=== PATIENT | male | born 1940 | race Caucasian/White ===

== ENCOUNTER 2016-01-14 14:30 | Outpatient (RCR) | payer MEDICARE, OTHER ==
[~2016-01-14 14:30] MED LIST: ACHD5005 PO; AMLO10TA2 PO; AMLO5TAB2 PO; APIX5TAB PO; ASCO500T20 PO; ASP325T; ATOR10TA66 PO; BUDE10.2 IH; CALC-656 PO; CARV12.53 PO; CARV40CP PO; CARV6.252 PO; CETI10CA PO; CETI10TA17 PO; CHOL400C8 PO; CYAN250L PO; DILT120C63 PO; DIPH50CA40 PO; FISH1CAP15 PO; FLUT16SP22 NS; FLUT1DIS27 IH; FNST5T; FRSM20T PO; GEMF600T3 PO; GINK60CA13 PO; GLUC-172 PO; GLUCO/CHON PO; GMFB600T PO; HYDR118S PO; HYDR30CR69 RC; IBUP-2055 PO; IBUP1TAB14 PO; IBUP1TAB15 PO; KCL10CCR PO; LIDO PO; LISI10TA2 PO; LISI20TA PO; LISI40TA PO; MAGN400C PO; MELO7.5T; MNTL10T PO; MONT10TA24 PO; MULT-974 PO; NF-LISIN40; NICO-627 BC; OMEG-109 PO; OMEG1CAP24 PO; OMEP20CA12 PO; OMEP40CA36 PO; OMG1KC PO; POTA-51 PO; POTA10CA43 PO; POTA10TA6 PO; RULOX PO; SELE100T PO; TIOT18CA PO; TRIA15CR TP; UBID100C17 PO; [UNRECOGNIZED DRUG - CODE] PO; [UNRECOGNIZED DRUG - OTHER] PO; [UNRECOGNIZED DRUG - OTHER] PO
== END 2016-02-23 | disposition home or self-care (01) ==
LOC: PULM 14:30
PROVIDERS: ATTEND Internal Medicine Critical Care Medicine
DX: J44.9 Chronic obstructive pulmonary disease, unspecified (principal)
CPT/HCPCS: 99211

== ENCOUNTER → 2016-02-13 | Outpatient (RCR) | payer MEDICARE, OTHER ==
[2015-11-14 10:49] LABS: BILIRUBIN,URINE NEGATIVE (NEGATIVE); KETONES,URINE NEGATIVE (NEGATIVE); LEUKOCYTE ESTERASE ,URINE 2+ (NEGATIVE); NITRITE,URINE NEGATIVE (NEGATIVE); PH,URINE 6 (5-9); PROTEIN,URINE 1+ (NEGATIVE); UROBILINOGEN,URINE NORMAL (NORMAL)
[2015-11-26 15:14] LABS: BILIRUBIN,URINE NEGATIVE (NEGATIVE); KETONES,URINE NEGATIVE (NEGATIVE); LEUKOCYTE ESTERASE ,URINE 2+ (NEGATIVE); NITRITE,URINE NEGATIVE (NEGATIVE); PH,URINE 5 (5-9); PROTEIN,URINE 1+ (NEGATIVE); UROBILINOGEN,URINE NORMAL (NORMAL)
[2016-02-12 15:35] LABS: BASOPHILS # (AUTO) 0.1 10^3/uL (0.0-0.1); BASOPHILS % (AUTO) 1 % (0-10); EOSINOPHILS # (AUTO) 0.2 10^3/uL (0.0-0.3); EOSINOPHILS % (AUTO) 2 % (0-10); LYMPHOCYTES % (AUTO) 24 % (12-44); MEAN CORPUSCULAR HEMOGLOBIN 27 PG (25-34); MEAN CORPUSCULAR HGB CONC 33 G/DL (32-36); MEAN CORPUSCULAR VOLUME 83 FL (80-99); MEAN PLATELET VOLUME 12.2 FL (7.4-10.4); MONOCYTES # (AUTO) 0.6 X 10^3 (0.0-1.0); MONOCYTES % (AUTO) 8 % (0-12); NEUTROPHILS # (AUTO) 5.4 X 10^3 (1.8-7.8); NEUTROPHILS % (AUTO) 65 % (42-75); PLATELET COUNT 217 10^3/uL (130-400); RED BLOOD COUNT 5.66 10^6/uL (4.35-5.85); RED CELL DISTRIBUTION WIDTH 15.2 % (10.0-14.5); WHITE BLOOD COUNT 8.3 10^3/uL (4.3-11.0)
[2016-02-12 15:52] LABS: ALANINE AMINOTRANSFERASE 14 U/L (0-55); ALBUMIN 4.1 G/DL (3.2-4.5); ANION GAP 9 MMOL/L (5-14); ASPARTATE AMINO TRANSFERASE 17 U/L (5-34); BILIRUBIN,TOTAL 0.3 MG/DL (0.1-1.0); BLOOD UREA NITROGEN 15 MG/DL (7-18); BUN/CREATININE RATIO 14; CALCIUM 9.6 MG/DL (8.5-10.1); CARBON DIOXIDE 25 MMOL/L (21-32); CHLORIDE 106 MMOL/L (98-107); CREATININE SERUM 1.08 MG/DL (0.60-1.30); GFR ESTIMATED > 60; GLUCOSE 101 MG/DL (70-105); POTASSIUM 5.1 MMOL/L (3.6-5.0); SODIUM 140 MMOL/L (135-145); TOTAL PROTEIN 6.9 G/DL (6.4-8.2)
--- NOTE | 2016-02-12 19:16 | Diagnostic Imaging Report ---
INDICATION: Malignant neoplasm of the left lung. Cough. TECHNIQUE: Two-view chest at 3:29 p.m. CORRELATION STUDY: 11/06/2015. FINDINGS: Irregular somewhat linear scar-like density about the left upper lobe does persist, perhaps slightly smaller. This extends from the suprahilar region to the pleural surface. Left lung is otherwise unremarkable. Right lung is relatively clear on followup. Asymmetric elevation of the right diaphragm anteriorly and medially. Heart size vasculature within normal limits. Calcification of the aortic arch. Mild degenerative changes of the thoracic spine. IMPRESSION: 1. Linear abnormal density of the left upper lobe, stable to perhaps slightly smaller from prior study. No new infiltrate or otherwise acute findings. Dictated by: Dictated on workstation # [id number]
[2016-02-13 15:37] LABS: MAGNESIUM 2.2 MG/DL (1.8-2.4)
== END | disposition home or self-care (01) ==
LOC: ONC 11-14 10:02
PROVIDERS: ATTEND Internal Medicine Hematology & Oncology
DX: C34.12 Malignant neoplasm of upper lobe, left bronchus or lung (principal); J44.9 Chronic obstructive pulmonary disease, unspecified; F17.210 Nicotine dependence, cigarettes, uncomplicated; R82.99 Other abnormal findings in urine; Z92.21 Personal history of antineoplastic chemotherapy; Z92.3 Personal history of irradiation
CPT/HCPCS: 36415; 71020; 80053; 81000; 83735; 85025; 86803; 87077; 87088; 87186; 99213

== ENCOUNTER → 2016-02-13 | Outpatient (CLI) | payer MEDICARE, OTHER | LOC: EDSTATUS 14:15 → LAB 14:17 | PROVIDERS: ATTEND Internal Medicine | DX: C34.12 Malignant neoplasm of upper lobe, left bronchus or lung (principal); Z20.828 Contact with and (suspected) exposure to other viral communicable diseases | CPT/HCPCS: 36415; 86803 ==

== ENCOUNTER → 2016-04-23 | Outpatient (CLI) | payer MEDICARE, OTHER ==
--- OUTSIDE RECORDS SUMMARY | 2016-04-23 11:41 | XMS REPORT | Continuity of Care Document ---
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 S SHAVING MACHINE OPERATOR Ot V58.69 09/26/2014 SHAN MORAN S SHAVING MACHINE OPERATOR Ot 162.3 09/26/2014 SHAN MORAN S SHAVING MACHINE OPERATOR Ot 414.00 09/26/2014 SHAN MORAN S SHAVING MACHINE OPERATOR Ot 428.0 09/26/2014 SHAN MORAN S SHAVING MACHINE OPERATOR Ot 496 09/26/2014 SHAN MORAN S SHAVING MACHINE OPERATOR Ot 585.3 09/26/2014 SHAN MORAN S SHAVING MACHINE OPERATOR Ot V58.66 09/26/2014 SHAN MORAN S SHAVING MACHINE OPERATOR Ot V58.69 09/26/2014 JAVED GILES, MORRO Tinsley Ot 272.4 09/26/2014 JAVED GILES, MORRO Tinsley Ot 401.9 09/26/2014 JAVED GILES, MORRO Tinsley Ot 428.0 09/26/2014 JAVED GILES, MORRO Tinsley Ot 496 10/02/2014 SHAN MORAN S SHAVING MACHINE OPERATOR Ot 162.9 10/02/2014 SHAN MORAN S SHAVING MACHINE OPERATOR Ot 162.9 10/03/2014 SHAN MORAN S SHAVING MACHINE OPERATOR Ot 162.9 10/03/2014 SHAN MORAN S SHAVING MACHINE OPERATOR Ot 162.9 10/03/2014 SHAN MORAN S SHAVING MACHINE OPERATOR Ot 571.8 10/03/2014 SHAN MORAN S SHAVING MACHINE OPERATOR Ot 793.6 10/05/2014 Ot 785.0 10/05/2014 Ot 785.1 10/05/2014 NY MEYERS DO Ot 786.30 HEMOPTYSIS, UNSPECIFIED 10/09/2014 SHAN MORAN S SHAVING MACHINE OPERATOR Ot 162.3 10/09/2014 SHAN MORAN S SHAVING MACHINE OPERATOR Ot 414.00 10/09/2014 SHAN MORAN S SHAVING MACHINE OPERATOR Ot 428.0 10/09/2014 SHAN MORAN S SHAVING MACHINE OPERATOR Ot 496 10/09/2014 SHAN MROAN S SHAVING MACHINE OPERATOR Ot 585.3 10/09/2014 MORAN SHAN S SHAVING MACHINE OPERATOR Ot V58.66 10/09/2014 SHAN MORAN S SHAVING MACHINE OPERATOR Ot V58.69 10/11/2014 SHAN MORAN S SHAVING MACHINE OPERATOR Ot 162.9 10/18/2014 JAVED GILES, MORRO Tinsley Ot 272.4 10/18/2014 JAVED GILES, MORRO Tinsley Ot 401.9 10/18/2014 JAVED GILES, MORRO Tinsley Ot 428.0 10/18/2014 JAVED GILES, MORRO Tinsley Ot 496 10/29/2014 MORAN SHAN S SHAVING MACHINE OPERATOR Ot 162.3 10/29/2014 MORAN SHAN S SHAVING MACHINE OPERATOR Ot 414.00 10/29/2014 MORAN SHAN S SHAVING MACHINE OPERATOR Ot 428.0 10/29/2014 MORAN SHAN S SHAVING MACHINE OPERATOR Ot 496 10/29/2014 MORAN SHAN S SHAVING MACHINE OPERATOR Ot 585.3 10/29/2014 MORAN SHAN S SHAVING MACHINE OPERATOR Ot V58.66 10/29/2014 SHAN MORAN S SHAVING MACHINE OPERATOR Ot V58.69 10/29/2014 SHAN MORAN S SHAVING MACHINE OPERATOR Ot 162.9 2014 RICHY, BOBAN N Ot 162.3 2014 RICHY, BOBAN N Ot 414.00 2014 RICHY, BOBAN N Ot 428.0 2014 RICHY, BOBAN N Ot 496 2014 RICHY, BOBAN N Ot 585.3 2014 RICHY BOBAN N Ot V58.66 2014 RICHY, BOBAN N Ot V58.69 11/07/2014 RICHY, BOBAN N Ot 162.3 MAL ELISEO UPPER LOBE LUNG 11/07/2014 RICHY, BOBAN N Ot 414.00 CORON ATHEROSCLER NOS TYPE VESSEL, NATIV 11/07/2014 RICHY BOBAN N Ot 428.0 CONGESTIVE HEART FAILURE NOS 11/07/2014 RICHY BOBGRETCHEN N Ot 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 11/07/2014 RICHY BOBGRETCHEN N Ot 585.3 CHRONIC KIDNEY DISEASE, STAGE III (MODER 11/07/2014 GASTON LOCKHART N Ot V58.66 LONG-TERM (CURRENT) USE OF ASPIRIN 11/07/2014 GASTON LOCKHART Chas Ot V58.69 OT MED,LT,CURRENT USE 12/12/2014 SHAN MORAN S SHAVING MACHINE OPERATOR Ot C34.90 12/12/2014 SHAN MORAN S SHAVING MACHINE OPERATOR Ot C34.90 12/12/2014 NGHIA MORANAH S SHAVING MACHINE OPERATOR Ot C34.90 12/12/2014 MORANNGHIAAH S SHAVING MACHINE OPERATOR Ot C34.90 12/12/2014 MORANNGHIAAH S SHAVING MACHINE OPERATOR Ot C34.90 12/12/2014 MORAN, HILAH S SHAVING MACHINE OPERATOR Ot C34.90 12/12/2014 NGHIA MORANAH S SHAVING MACHINE OPERATOR Ot C34.90 01/07/2015 SHAN MORAN S SHAVING MACHINE OPERATOR Ot C34.90 01/18/2015 MORRO BURT MD Ot 272.4 01/18/2015 MORRO BURT MD Ot 401.9 01/18/2015 MORRO BURT MD Ot 428.0 01/18/2015 MORRO BURT MD Ot 496 01/18/2015 SHAN MORAN S SHAVING MACHINE OPERATOR Ot 571.8 01/18/2015 SHAN MORAN S SHAVING MACHINE OPERATOR Ot 793.6 01/22/2015 SHAN MORAN S SHAVING MACHINE OPERATOR Ot C34.90 02/05/2015 MORRO BURT MD Ot 272.4 02/05/2015 MORRO BURT MD Ot 401.9 02/05/2015 MORRO BURT MD Ot 428.0 02/05/2015 MORRO BURT MD Ot 496 02/05/2015 SHAN MORAN S SHAVING MACHINE OPERATOR Ot 571.8 02/05/2015 SHAN MORAN S SHAVING MACHINE OPERATOR Ot 793.6 02/06/2015 MORRO BURT MD Ot E78.5 02/06/2015 MORRO BURT MD Ot I10 02/06/2015 MORRO BURT MD Ot I50.9 02/06/2015 MORRO BURT MD Ot J44.9 02/14/2015 GASTON LOCKHART Ot C34.90 03/06/2015 SHAN MORAN SHAVING MACHINE OPERATOR Ot R91.8 03/06/2015 LUISA SHAN Francis SHAVING MACHINE OPERATOR Ot Z85.118 03/06/2015 LUISA SHAN Francis SHAVING MACHINE OPERATOR Ot R91.8 03/06/2015 MORAN SHAN S SHAVING MACHINE OPERATOR Ot Z85.118 03/06/2015 GASTON LOCKHART Ot C34.90 03/10/2015 GASTON LOCKHART Ot C34.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, LEFT B 03/10/2015 GASTON LOCKHART Ot C34.90 03/10/2015 GASTON LOCKHART Ot F17.210 NICOTINE DEPENDENCE, CIGARETTES, UNCOMPL 03/10/2015 GASTON LOCKHART Ot J44.9 CHRONIC OBSTRUCTIVE PULMONARY DISEASE, U 03/10/2015 GASTON LOCKHART Ot Z92.21 PERSONAL HISTORY OF ANTINEOPLASTIC CHEMO 03/10/2015 GASTON LOCKHART Ot Z92.3 PERSONAL HISTORY OF IRRADIATION 03/21/2015 NGHIA MORANRONAL Penny SHAVING MACHINE OPERATOR Ot R91.8 03/21/2015 NGHIA MORANRONAL S SHAVING MACHINE OPERATOR Ot Z85.118 04/12/2015 NGHIA MORANRONAL S SHAVING MACHINE OPERATOR Ot C34.12 04/12/2015 NGHIA MORANRONAL S SHAVING MACHINE OPERATOR Ot F17.210 04/12/2015 LUISA SHAN S SHAVING MACHINE OPERATOR Ot J44.9 04/12/2015 LUISA SHAN S SHAVING MACHINE OPERATOR Ot Z92.21 04/12/2015 LUISA SHAN S SHAVING MACHINE OPERATOR Ot Z92.3 04/19/2015 LUISA SHAN S SHAVING MACHINE OPERATOR Ot R91.8 04/19/2015 LUISA SHAN S SHAVING MACHINE OPERATOR Ot Z85.118 04/30/2015 NGHIA MORANRONAL S SHAVING MACHINE OPERATOR Ot C34.12 04/30/2015 LUISA SHAN Penny SHAVING MACHINE OPERATOR Ot F17.210 04/30/2015 LUISA SHAN S SHAVING MACHINE OPERATOR Ot J44.9 04/30/2015 LUISA SHAN S SHAVING MACHINE OPERATOR Ot Z92.21 04/30/2015 NGHIA MORANRONAL S SHAVING MACHINE OPERATOR Ot Z92.3 05/02/2015 JAVED GILES, MORRO Tinsley Ot E78.5 06/28/2015 GASTON LOCKHART Ot C34.90 MALIGNANT NEOPLASM OF UNSP PART OF UNSP 07/11/2015 Ot 599.70 HEMATURIA, UNSPECIFIED 07/11/2015 Ot 600.00 HYPERTROPHY (BENIGN) OF PROSTATE W/O URI 07/11/2015 Ot 724.4 LUMBOSACRAL NEURITIS NOS 07/11/2015 Ot 786.09 RESPIRATORY ABNORM NEC 07/11/2015 Ot 786.50 CHEST PAIN NOS 07/11/2015 Ot 397.0 TRICUSPID VALVE DISEASE 07/11/2015 Ot 401.9 HYPERTENSION NOS 07/11/2015 Ot 424.0 MITRAL VALVE DISORDER 07/11/2015 Ot 428.0 CONGESTIVE HEART FAILURE NOS 07/11/2015 DARLING GILES, BRENDA Alonso Ot 786.30 HEMOPTYSIS, UNSPECIFIED 07/11/2015 DARLING GILES, BRENDA Alonso Ot 786.6 CHEST SWELLING/MASS/LUMP 07/11/2015 DARLING GILES, BRENDA Alonso Ot 414.01 CORONARY ATHEROSCLEROSIS OF [place] CORON 07/11/2015 DARLING GILES, BRENDA Alonso Ot 786.6 CHEST SWELLING/MASS/LUMP 07/11/2015 SHAN MORAN S SHAVING MACHINE OPERATOR Ot 162.3 MAL ELISEO UPPER LOBE LUNG 07/11/2015 SHAN MORAN S SHAVING MACHINE OPERATOR Ot 414.00 CORON ATHEROSCLER NOS TYPE VESSEL, NATIV 07/11/2015 SHAN MORAN S SHAVING MACHINE OPERATOR Ot 428.0 CONGESTIVE HEART FAILURE NOS 07/11/2015 SHAN MORAN S SHAVING MACHINE OPERATOR Ot 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 07/11/2015 SHAN MORAN S SHAVING MACHINE OPERATOR Ot 585.3 CHRONIC KIDNEY DISEASE, STAGE III ( MODER 07/11/2015 SHAN MORAN S SHAVING MACHINE OPERATOR Ot V58.66 LONG-TERM (CURRENT) USE OF ASPIRIN 07/11/2015 SHAN MORAN S SHAVING MACHINE OPERATOR Ot V58.69 OT MED,LT,CURRENT USE 07/11/2015 SHAN MORAN S SHAVING MACHINE OPERATOR Ot 162.3 MAL ELISEO UPPER LOBE LUNG 07/11/2015 NGHIA MORANAH S SHAVING MACHINE OPERATOR Ot 414.00 CORON ATHEROSCLER NOS TYPE VESSEL, NATIV 07/11/2015 SHAN MORAN S SHAVING MACHINE OPERATOR Ot 428.0 CONGESTIVE HEART FAILURE NOS 07/11/2015 SHAN MORAN S SHAVING MACHINE OPERATOR Ot 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 07/11/2015 SHAN MORAN S SHAVING MACHINE OPERATOR Ot 585.3 CHRONIC KIDNEY DISEASE, STAGE III ( MODER 07/11/2015 NGHIA MORANAH S SHAVING MACHINE OPERATOR Ot V58.66 LONG-TERM (CURRENT) USE OF ASPIRIN 07/11/2015 SHAN MORAN SHAVING MACHINE OPERATOR Ot V58.69 OTH MED,LT,CURRENT USE 07/11/2015 SHAN MORAN SHAVING MACHINE OPERATOR Ot 162.3 MAL ELISEO UPPER LOBE LUNG 07/11/2015 SHAN MORAN S SHAVING MACHINE OPERATOR Ot 414.00 CORON ATHEROSCLER NOS TYPE VESSEL, NATIV 07/11/2015 SHAN MORAN S SHAVING MACHINE OPERATOR Ot 428.0 CONGESTIVE HEART FAILURE NOS 07/11/2015 SHAN MORAN SHAVING MACHINE OPERATOR Ot 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 07/11/2015 SHAN MORAN S SHAVING MACHINE OPERATOR Ot 585.3 CHRONIC KIDNEY DISEASE, STAGE III ( MODER 07/11/2015 SHAN MORAN SHAVING MACHINE OPERATOR Ot V58.66 LONG-TERM (CURRENT) USE OF ASPIRIN 07/11/2015 SHAN MORAN SHAVING MACHINE OPERATOR Ot V58.69 OTH MED,LT,CURRENT USE 07/11/2015 SHAN MORAN SHAVING MACHINE OPERATOR Ot 162.3 MAL ELISEO UPPER LOBE LUNG 07/11/2015 SHAN MORAN SHAVING MACHINE OPERATOR Ot 162.9 MAL ELISEO BRONCH/LUNG NOS 07/11/2015 SHAN MORAN S SHAVING MACHINE OPERATOR Ot 473.0 CHR MAXILLARY SINUSITIS 07/11/2015 SHAN MORAN SHAVING MACHINE OPERATOR Ot 780.4 DIZZINESS AND GIDDINESS 07/11/2015 SHAN MORAN SHAVING MACHINE OPERATOR Ot 784.0 HEADACHE 07/11/2015 SHAN MORAN S SHAVING MACHINE OPERATOR Ot 162.9 MAL ELISEO BRONCH/LUNG NOS 07/11/2015 SHAN MORAN SHAVING MACHINE OPERATOR Ot 272.0 PURE HYPERCHOLESTEROLEM 07/11/2015 SHAN MORAN SHAVING MACHINE OPERATOR Ot 403.90 HYPTNSV CHR KID DIS, UNSPEC, W CHR KD ST 07/11/2015 SHAN MORAN S SHAVING MACHINE OPERATOR Ot 414.01 CORONARY ATHEROSCLEROSIS OF [place] CORON 07/11/2015 SHAN MORAN S SHAVING MACHINE OPERATOR Ot 428.0 CONGESTIVE HEART FAILURE NOS 07/11/2015 SHAN MORAN SHAVING MACHINE OPERATOR Ot 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 07/11/2015 SHAN MORAN SHAVING MACHINE OPERATOR Ot 585.3 CHRONIC KIDNEY DISEASE, STAGE III ( MODER 07/11/2015 SHAN MORAN S SHAVING MACHINE OPERATOR Ot 715.90 OSTEOARTHROS NOS-UNSPEC 07/11/2015 SHAN MORAN SHAVING MACHINE OPERATOR Ot 784.0 HEADACHE 07/11/2015 GASTON LOCKHART N Ot 162.9 MAL ELISEO BRONCH/LUNG NOS 07/11/2015 SHAN MORAN S SHAVING MACHINE OPERATOR Ot 162.3 MAL ELISEO UPPER LOBE LUNG 07/11/2015 SHAN MORAN S SHAVING MACHINE OPERATOR Ot 272.0 PURE HYPERCHOLESTEROLEM 07/11/2015 SHAN MORAN S SHAVING MACHINE OPERATOR Ot 403.90 HYPTNSV CHR KID DIS, UNSPEC, W CHR KD ST 07/11/2015 SHAN MORAN S SHAVING MACHINE OPERATOR Ot 414.01 CORONARY ATHEROSCLEROSIS OF [place] CORON 07/11/2015 SHAN MORAN S SHAVING MACHINE OPERATOR Ot 428.0 CONGESTIVE HEART FAILURE NOS 07/11/2015 SHAN MORAN S SHAVING MACHINE OPERATOR Ot 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 07/11/2015 SHAN MORAN S SHAVING MACHINE OPERATOR Ot 585.3 CHRONIC KIDNEY DISEASE, STAGE III ( MODER 07/11/2015 SHAN MORAN S SHAVING MACHINE OPERATOR Ot 715.90 OSTEOARTHROS NOS-UNSPEC 07/11/2015 SHAN MORAN S SHAVING MACHINE OPERATOR Ot V58.66 LONG-TERM (CURRENT) USE OF ASPIRIN 07/11/2015 SHAN MORAN S SHAVING MACHINE OPERATOR Ot V58.69 OTH MED,LT,CURRENT USE 07/11/2015 SHAN MORAN SHAVING MACHINE OPERATOR Ot 162.9 MAL ELISEO BRONCH/LUNG NOS 07/11/2015 SHAN MORAN S SHAVING MACHINE OPERATOR Ot 162.3 MAL ELISEO UPPER LOBE LUNG 07/11/2015 SHAN MORAN S SHAVING MACHINE OPERATOR Ot 414.00 CORON ATHEROSCLER NOS TYPE VESSEL, NATIV 07/11/2015 SHAN MORAN S SHAVING MACHINE OPERATOR Ot 428.0 CONGESTIVE HEART FAILURE NOS 07/11/2015 SHAN MORAN S SHAVING MACHINE OPERATOR Ot 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 07/11/2015 SHAN MORAN S SHAVING MACHINE OPERATOR Ot 585.3 CHRONIC KIDNEY DISEASE, STAGE III ( MODER 07/11/2015 SHAN MORAN S SHAVING MACHINE OPERATOR Ot V58.66 LONG-TERM (CURRENT) USE OF ASPIRIN 07/11/2015 SHAN MORAN S SHAVING MACHINE OPERATOR Ot V58.69 OTH MED,LT,CURRENT USE 07/11/2015 SHAN MORAN S SHAVING MACHINE OPERATOR Ot 162.9 MAL ELISEO BRONCH/LUNG NOS 07/11/2015 SHAN MORAN S SHAVING MACHINE OPERATOR Ot 793.19 OTHER NONSPECIFIC ABNORMAL FINDING OF MIN 07/11/2015 GASTON LOCKHART N Ot 162.9 MAL ELISEO BRONCH/LUNG NOS 07/11/2015 GASTON LOCKHART N Ot 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 07/11/2015 LUISA SHAN Penny SHAVING MACHINE OPERATOR Ot 162.3 MAL ELISEO UPPER LOBE LUNG 07/11/2015 SHAN MORAN SHAVING MACHINE OPERATOR Ot 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 07/11/2015 SHAN MORAN SHAVING MACHINE OPERATOR Ot V15.3 HX OF IRRADIATION 07/11/2015 LUISA SHAN Francis SHAVING MACHINE OPERATOR Ot V58.69 OT MED,LT,CURRENT USE 07/11/2015 NGHIA MORANRONAL Penny SHAVING MACHINE OPERATOR Ot V87.41 PERSONAL HISTORY OF ANTINEOPLASTIC CHEMO 07/11/2015 [place] MEYERS DO Ot 162.9 MAL ELISEO BRONCH/LUNG NOS 07/11/2015 [place] MEYERS DO Ot 428.0 CONGESTIVE HEART FAILURE NOS 07/11/2015 [place] MEYERS DO Ot 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 07/11/2015 NY MEYERS DO Ot 518.0 PULMONARY COLLAPSE 07/11/2015 NY MEYERS DO Ot 793.19 OTHER NONSPECIFIC ABNORMAL FINDING OF MIN 07/11/2015 NY MEYERS DO Ot 162.9 MAL ELISEO BRONCH/LUNG NOS 07/11/2015 NY MEYERS DO Ot 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 07/11/2015 NY MEYERS DO Ot 585.3 CHRONIC KIDNEY DISEASE, STAGE III (MODER 07/11/2015 NY MEYERS DO Ot 793.19 OTHER NONSPECIFIC ABNORMAL FINDING OF MIN 07/11/2015 [place] MEYERS DO Ot V72.84 EXAM PRE-OPERATIVE NOS 07/11/2015 NY MEYERS DO Ot 162.9 MAL ELISEO BRONCH/LUNG NOS 07/11/2015 NY MEYERS DO Ot 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 07/11/2015 NY MEYERS DO Ot 585.3 CHRONIC KIDNEY DISEASE, STAGE III (MODER 07/11/2015 NY MEYERS DO Ot 162.9 MAL ELISEO BRONCH/LUNG NOS 07/11/2015 NY MEYERS DO Ot 793.19 OTHER NONSPECIFIC ABNORMAL FINDING OF MIN 07/11/2015 LCOO GARZA DO Ot 783.1 ABNORMAL WEIGHT GAIN 07/11/2015 GASTON LOCKHART N Ot 162.9 MAL ELISEO BRONCH/LUNG NOS 07/11/2015 GASTON LOCKHART N Ot 492.8 EMPHYSEMA NEC 07/11/2015 GASTON LOCKHART N Ot 571.8 CHRONIC LIVER DIS NEC 07/11/2015 GASTON LOCKHART N Ot 789.1 HEPATOMEGALY 07/11/2015 NY MEYERS DO Ot 162.9 MAL ELISEO BRONCH/LUNG NOS 07/11/2015 NY MEYERS DO Ot 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 07/11/2015 GASTON LOCKHART N Ot 162.9 MAL ELISEO BRONCH/LUNG NOS 07/11/2015 Ot 785.0 TACHYCARDIA NOS 07/11/2015 Ot 785.1 PALPITATIONS 07/11/2015 NY MEYERS DO Ot 162.9 MAL ELISEO BRONCH/LUNG NOS 07/11/2015 NY MEYERS DO Ot 278.00 OBESITY, NOS 07/11/2015 NY MEYERS DO Ot 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 07/11/2015 MORRO BURT MD Ot 272.4 HYPERLIPIDEMIA NEC/NOS 07/11/2015 MORRO BURT MD Ot 401.9 HYPERTENSION NOS 07/11/2015 MORRO BURT MD Ot 428.0 CONGESTIVE HEART FAILURE NOS 07/11/2015 MORRO BURT MD Ot 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 07/11/2015 MORRO BURT MD Ot 272.4 HYPERLIPIDEMIA NEC/NOS 07/11/2015 MORRO BURT MD Ot 401.9 HYPERTENSION NOS 07/11/2015 MORRO BURT MD Ot 428.0 CONGESTIVE HEART FAILURE NOS 07/11/2015 MORRO BURT MD Ot 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 07/11/2015 MORRO BURT MD Ot 272.4 HYPERLIPIDEMIA NEC/NOS 07/11/2015 MORRO BURT MD Ot 401.9 HYPERTENSION NOS 07/11/2015 MORRO BURT MD Ot 428.0 CONGESTIVE HEART FAILURE NOS 07/11/2015 MORRO BURT MD Ot 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 07/11/2015 SHAN MORAN SHAVING MACHINE OPERATOR Ot 162.3 MAL ELISEO UPPER LOBE LUNG 07/11/2015 SHAN MORAN SHAVING MACHINE OPERATOR Ot 414.00 CORON ATHEROSCLER NOS TYPE VESSEL, NATIV 07/11/2015 SHAN MORAN SHAVING MACHINE OPERATOR Ot 428.0 CONGESTIVE HEART FAILURE NOS 07/11/2015 SHAN MORAN SHAVING MACHINE OPERATOR Ot 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 07/11/2015 SHAN MORAN SHAVING MACHINE OPERATOR Ot 585.3 CHRONIC KIDNEY DISEASE, STAGE III ( MODER 07/11/2015 SHAN MORANP Ot V58.66 LONG-TERM (CURRENT) USE OF ASPIRIN 07/11/2015 SHAN MORAN SHAVING MACHINE OPERATOR Ot V58.69 OTH MED,LT,CURRENT USE 07/11/2015 RICHYFREDDY LANDRYGRETCHEN Doherty Ot 162.9 MAL ELISEO BRONCH/LUNG NOS 07/11/2015 SHAN MORAN SHAVING MACHINE OPERATOR Ot 162.9 MAL ELISEO BRONCH/LUNG NOS 07/11/2015 SHAN MORAN SHAVING MACHINE OPERATOR Ot 571.8 CHRONIC LIVER DIS NEC 07/11/2015 SHAN MORANP Ot 793.6 NOSP (ABN) FINDINGS ON RADIOLOGICAL OT 07/11/2015 SHAN MORANP Ot C34.90 MALIGNANT NEOPLASM OF UNSP PART OF UNSP 07/11/2015 JAVED GILES, MORRO Tinsley Ot E78.5 HYPERLIPIDEMIA, UNSPECIFIED 07/11/2015 JAVED GILES, MORRO Tinsley Ot I10 ESSENTIAL (PRIMARY) HYPERTENSION 07/11/2015 MORRO BURT MD Ot I50.9 HEART FAILURE, UNSPECIFIED 07/11/2015 MORRO BURT MD Ot J44.9 CHRONIC OBSTRUCTIVE PULMONARY DISEASE, U 07/11/2015 SHAN MORANP Ot R91.8 OTHER NONSPECIFIC ABNORMAL FINDING OF MIN 07/11/2015 SHAN MORAN SHAVING MACHINE OPERATOR Ot Z85.118 PERSONAL HISTORY OF MALIGNANT NEOPLASM O 07/11/2015 SHAN MORAN SHAVING MACHINE OPERATOR Ot C34.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, LEFT B 07/11/2015 SHAN MORANP Ot F17.210 NICOTINE DEPENDENCE, CIGARETTES, UNCOMPL 07/11/2015 SHAN MORAN SHAVING MACHINE OPERATOR Ot J44.9 CHRONIC OBSTRUCTIVE PULMONARY DISEASE, U 07/11/2015 SHAN MORANP Ot Z92.21 PERSONAL HISTORY OF ANTINEOPLASTIC CHEMO 07/11/2015 SHAN MORAN Ot Z92.3 PERSONAL HISTORY OF IRRADIATION 07/11/2015 GASTON LOCKHART Chas Ot C34.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, LEFT B 07/11/2015 GASTON LOCKHART Chas Ot F17.210 NICOTINE DEPENDENCE, CIGARETTES, UNCOMPL 07/11/2015 GASTON LOCKHART Chas Ot J44.9 CHRONIC OBSTRUCTIVE PULMONARY DISEASE, U 07/11/2015 GASTON LOCKHART Chas Ot Z92.21 PERSONAL HISTORY OF ANTINEOPLASTIC CHEMO 07/11/2015 GASTON LOCKHART Chas Ot Z92.3 PERSONAL HISTORY OF IRRADIATION 07/11/2015 MORRO BURT MD Ot E78.5 HYPERLIPIDEMIA, UNSPECIFIED 07/12/2015 ROLA SHORT Ot E78.2 MIXED HYPERLIPIDEMIA 08/01/2015 GASTON LOCKHART Chas Ot C34.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, LEFT B 08/01/2015 GASTON LOCKHART Chas Ot F17.210 NICOTINE DEPENDENCE, CIGARETTES, UNCOMPL 08/01/2015 GASTON LOCKHART Chas Ot J44.9 CHRONIC OBSTRUCTIVE PULMONARY DISEASE, U 08/01/2015 GASTON LOCKHART N Ot Z92.21 PERSONAL HISTORY OF ANTINEOPLASTIC CHEMO 08/01/2015 GASTON LOCKHART Chas Ot Z92.3 PERSONAL HISTORY OF IRRADIATION 08/03/2015 ROLA SHORT Ot E78.2 MIXED HYPERLIPIDEMIA 08/13/2015 NICOLASAKELBY MALHOTRA, PAUL J Ot M48.02 SPINAL STENOSIS, CERVICAL REGION 08/13/2015 NICOLASA ROSCOE, PAUL J Ot M54.2 CERVICALGIA 08/16/2015 NICOLASA ROSCOE, PAUL Tinsley Ot M48.02 SPINAL STENOSIS, CERVICAL REGION 08/16/2015 NICOLASA ROSCOE, PAUL J Ot M54.2 CERVICALGIA 08/22/2015 GASTON LOCKHART Chas Ot C34.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, LEFT B 08/22/2015 GASTON LOCKHART Chas Ot F17.210 NICOTINE DEPENDENCE, CIGARETTES, UNCOMPL 08/22/2015 GASTON LOCKHART Chas Ot J44.9 CHRONIC OBSTRUCTIVE PULMONARY DISEASE, U 08/22/2015 GASTON LOCKHART N Ot Z92.21 PERSONAL HISTORY OF ANTINEOPLASTIC CHEMO 08/22/2015 GASTON LOCKHART N Ot Z92.3 PERSONAL HISTORY OF IRRADIATION 09/13/2015 NICOLASA PAUL MALHOTRA Ot M48.02 SPINAL STENOSIS, CERVICAL REGION 09/13/2015 NICOLASA ROSCOE, PAUL Tinsley Ot M54.2 CERVICALGIA 09/25/2015 GASTON LOCKHART Chas Ot C34.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, LEFT B 09/25/2015 GASTON LOCKHART Chas Ot F17.210 NICOTINE DEPENDENCE, CIGARETTES, UNCOMPL 09/25/2015 GASTON LOCKHART Chas Ot J44.9 CHRONIC OBSTRUCTIVE PULMONARY DISEASE, U 09/25/2015 GASTON LOCKHART N Ot Z92.21 PERSONAL HISTORY OF ANTINEOPLASTIC CHEMO 09/25/2015 GASTON LOCKHART N Ot Z92.3 PERSONAL HISTORY OF IRRADIATION 09/26/2015 GASTON LOCKHART N Ot C34.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, LEFT B 09/26/2015 GASTON LOCKHART Chas Ot F17.210 NICOTINE DEPENDENCE, CIGARETTES, UNCOMPL 09/26/2015 GASTON LOCKHART Chas Ot J44.9 CHRONIC OBSTRUCTIVE PULMONARY DISEASE, U 09/26/2015 GASTON LOCKHART N Ot Z92.21 PERSONAL HISTORY OF ANTINEOPLASTIC CHEMO 09/26/2015 GASTON LOCKHART N Ot Z92.3 PERSONAL HISTORY OF IRRADIATION 10/09/2015 GASTON LOCKHART N Ot C34.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, LEFT B 10/09/2015 GASTON LOCKHART N Ot F17.210 NICOTINE DEPENDENCE, CIGARETTES, UNCOMPL 10/09/2015 GASTON LOCKHART N Ot J44.9 CHRONIC OBSTRUCTIVE PULMONARY DISEASE, U 10/09/2015 GASTON LOCKHART N Ot Z92.21 PERSONAL HISTORY OF ANTINEOPLASTIC CHEMO 10/09/2015 GASTON LOCKHART N Ot Z92.3 PERSONAL HISTORY OF IRRADIATION 10/15/2015 GASTON LOCKHART N Ot C34.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, LEFT B 10/15/2015 GASTON LOCKHART N Ot F17.210 NICOTINE DEPENDENCE, CIGARETTES, UNCOMPL 10/15/2015 GASTON LOCKHART N Ot J44.9 CHRONIC OBSTRUCTIVE PULMONARY DISEASE, U 10/15/2015 GASTON LOCKHART N Ot Z92.21 PERSONAL HISTORY OF ANTINEOPLASTIC CHEMO 10/15/2015 GASTON LOCKHART N Ot Z92.3 PERSONAL HISTORY OF IRRADIATION 10/15/2015 JAVED GILES, MORRO Tinsley Ot E78.2 MIXED HYPERLIPIDEMIA 10/15/2015 GASTON LOCKHART Chas Ot C34.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, LEFT B 10/15/2015 GASTON LOCKHART Chas Ot C34.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, LEFT B 10/16/2015 JAVED GILES, MORRO Tinsley Ot E78.2 MIXED HYPERLIPIDEMIA 10/16/2015 MORRO BURT MD Ot E78.2 MIXED HYPERLIPIDEMIA 10/16/2015 MORRO BURT MD Ot E78.2 MIXED HYPERLIPIDEMIA 10/16/2015 MORRO BURT MD Ot E78.2 MIXED HYPERLIPIDEMIA 10/16/2015 MORRO BURT MD Ot E78.2 MIXED HYPERLIPIDEMIA 10/22/2015 Ot 724.4 LUMBOSACRAL NEURITIS NOS 10/22/2015 Ot 786.09 RESPIRATORY ABNORM NEC 10/22/2015 Ot 786.50 CHEST PAIN NOS 10/22/2015 Ot 397.0 TRICUSPID VALVE DISEASE 10/22/2015 Ot 401.9 HYPERTENSION NOS 10/22/2015 Ot 424.0 MITRAL VALVE DISORDER 10/22/2015 Ot 428.0 CONGESTIVE HEART FAILURE NOS 10/22/2015 DRALING GILES, BRENDA Alonso Ot 786.30 HEMOPTYSIS, UNSPECIFIED 10/22/2015 BRENDA HASTINGS MD Ot 786.6 CHEST SWELLING/MASS/LUMP 10/22/2015 BRENDA HASTINGS MD Ot 414.01 CORONARY ATHEROSCLEROSIS OF [place] CORON 10/22/2015 BRENDA HASTINGS MD Ot 786.6 CHEST SWELLING/MASS/LUMP 10/22/2015 SHAN MORAN SHAVING MACHINE OPERATOR Ot 162.3 MAL ELISE[place] UPPER LOBE LUNG 10/22/2015 SHAN MORAN SHAVING MACHINE OPERATOR Ot 414.00 CORON ATHEROSCLER NOS TYPE VESSEL, NATIV 10/22/2015 SHAN MORAN SHAVING MACHINE OPERATOR Ot 428.0 CONGESTIVE HEART FAILURE NOS 10/22/2015 SHAN MORAN SHAVING MACHINE OPERATOR Ot 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 10/22/2015 SHAN MORAN SHAVING MACHINE OPERATOR Ot 585.3 CHRONIC KIDNEY DISEASE, STAGE III ( MODER 10/22/2015 SHAN MORAN SHAVING MACHINE OPERATOR Ot V58.66 LONG-TERM (CURRENT) USE OF ASPIRIN 10/22/2015 SHAN MORAN SHAVING MACHINE OPERATOR Ot V58.69 OTH MED,LT,CURRENT USE 10/22/2015 SHAN MORAN SHAVING MACHINE OPERATOR Ot 162.3 MAL [place]ISE[place] UPPER LOBE LUNG 10/22/2015 SHAN MORAN S SHAVING MACHINE OPERATOR Ot 414.00 CORON ATHEROSCLER NOS TYPE VESSEL, NATIV 10/22/2015 SHAN MORAN S SHAVING MACHINE OPERATOR Ot 428.0 CONGESTIVE HEART FAILURE NOS 10/22/2015 SHAN MORAN S SHAVING MACHINE OPERATOR Ot 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 10/22/2015 SHAN MORAN S SHAVING MACHINE OPERATOR Ot 585.3 CHRONIC KIDNEY DISEASE, STAGE III ( MODER 10/22/2015 SHAN MORAN S SHAVING MACHINE OPERATOR Ot V58.66 LONG-TERM (CURRENT) USE OF ASPIRIN 10/22/2015 SHAN MORAN S SHAVING MACHINE OPERATOR Ot V58.69 OTH MED,LT,CURRENT USE 10/22/2015 SHAN MORAN S SHAVING MACHINE OPERATOR Ot 162.3 MAL [place] UPPER LOBE LUNG 10/22/2015 SHAN MORAN S SHAVING MACHINE OPERATOR Ot 414.00 CORON ATHEROSCLER NOS TYPE VESSEL, NATIV 10/22/2015 SHAN MORAN S SHAVING MACHINE OPERATOR Ot 428.0 CONGESTIVE HEART FAILURE NOS 10/22/2015 SHAN MORAN S SHAVING MACHINE OPERATOR Ot 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 10/22/2015 SHAN MORAN S SHAVING MACHINE OPERATOR Ot 585.3 CHRONIC KIDNEY DISEASE, STAGE III ( MODER 10/22/2015 SHAN MORAN S SHAVING MACHINE OPERATOR Ot V58.66 LONG-TERM (CURRENT) USE OF ASPIRIN 10/22/2015 SHAN MORAN S SHAVING MACHINE OPERATOR Ot V58.69 OTH MED,LT,CURRENT USE 10/22/2015 SHAN MORAN S SHAVING MACHINE OPERATOR Ot 162.3 MAL [place] UPPER LOBE LUNG 10/22/2015 SHAN MORAN S SHAVING MACHINE OPERATOR Ot 162.9 MAL [place]ISE[place] BRONCH/LUNG NOS 10/22/2015 SHAN MORAN S SHAVING MACHINE OPERATOR Ot 473.0 CHR MAXILLARY SINUSITIS 10/22/2015 SHAN MORAN S SHAVING MACHINE OPERATOR Ot 780.4 DIZZINESS AND GIDDINESS 10/22/2015 SHAN MORAN S SHAVING MACHINE OPERATOR Ot 784.0 HEADACHE 10/22/2015 SHAN MORAN S SHAVING MACHINE OPERATOR Ot 162.9 MAL [place]ISE[place] BRONCH/LUNG NOS 10/22/2015 SHAN MORAN S SHAVING MACHINE OPERATOR Ot 272.0 PURE HYPERCHOLESTEROLEM 10/22/2015 SHAN MORAN S SHAVING MACHINE OPERATOR Ot 403.90 HYPTNSV CHR KID DIS, UNSPEC, W CHR KD ST 10/22/2015 SHAN MORAN SHAVING MACHINE OPERATOR Ot 414.01 CORONARY ATHEROSCLEROSIS OF [place] CORON 10/22/2015 SHAN MORAN SHAVING MACHINE OPERATOR Ot 428.0 CONGESTIVE HEART FAILURE NOS 10/22/2015 SHAN MORAN SHAVING MACHINE OPERATOR Ot 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 10/22/2015 SHAN MORAN SHAVING MACHINE OPERATOR Ot 585.3 CHRONIC KIDNEY DISEASE, STAGE III ( MODER 10/22/2015 SHAN MORAN SHAVING MACHINE OPERATOR Ot 715.90 OSTEOARTHROS NOS-UNSPEC 10/22/2015 SHAN MORAN SHAVING MACHINE OPERATOR Ot 784.0 HEADACHE 10/22/2015 GASTON LOCKHART N Ot 162.9 MAL [place]ISEO BRONCH/LUNG NOS 10/22/2015 SHAN MORAN SHAVING MACHINE OPERATOR Ot 162.3 MAL [place] UPPER LOBE LUNG 10/22/2015 SHAN MORAN S SHAVING MACHINE OPERATOR Ot 272.0 PURE HYPERCHOLESTEROLEM 10/22/2015 SHAN MORAN SHAVING MACHINE OPERATOR Ot 403.90 HYPTNSV CHR KID DIS, UNSPEC, W CHR KD ST 10/22/2015 SHAN MORAN S SHAVING MACHINE OPERATOR Ot 414.01 CORONARY ATHEROSCLEROSIS OF [place] CORON 10/22/2015 SHAN MORAN SHAVING MACHINE OPERATOR Ot 428.0 CONGESTIVE HEART FAILURE NOS 10/22/2015 SHAN MORAN SHAVING MACHINE OPERATOR Ot 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 10/22/2015 SHAN MORAN SHAVING MACHINE OPERATOR Ot 585.3 CHRONIC KIDNEY DISEASE, STAGE III ( MODER 10/22/2015 SHAN MORAN SHAVING MACHINE OPERATOR Ot 715.90 OSTEOARTHROS NOS-UNSPEC 10/22/2015 SHAN MORAN SHAVING MACHINE OPERATOR Ot V58.66 LONG-TERM (CURRENT) USE OF ASPIRIN 10/22/2015 SHAN MORAN S SHAVING MACHINE OPERATOR Ot V58.69 OTH MED,LT,CURRENT USE 10/22/2015 SHAN MORAN SHAVING MACHINE OPERATOR Ot 162.9 MAL ELISEO BRONCH/LUNG NOS 10/22/2015 SHAN MORAN S SHAVING MACHINE OPERATOR Ot 162.3 MAL ELISEO UPPER LOBE LUNG 10/22/2015 SHAN MORAN S SHAVING MACHINE OPERATOR Ot 414.00 CORON ATHEROSCLER NOS TYPE VESSEL, NATIV 10/22/2015 SHAN MORAN S SHAVING MACHINE OPERATOR Ot 428.0 CONGESTIVE HEART FAILURE NOS 10/22/2015 SHAN MORAN S SHAVING MACHINE OPERATOR Ot 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 10/22/2015 SHAN MORAN SHAVING MACHINE OPERATOR Ot 585.3 CHRONIC KIDNEY DISEASE, STAGE III ( MODER 10/22/2015 SHAN MORAN SHAVING MACHINE OPERATOR Ot V58.66 LONG-TERM (CURRENT) USE OF ASPIRIN 10/22/2015 SHAN MORAN SHAVING MACHINE OPERATOR Ot V58.69 OTH MED,LT,CURRENT USE 10/22/2015 SHAN MORAN SHAVING MACHINE OPERATOR Ot 162.9 MAL ELISEO BRONCH/LUNG NOS 10/22/2015 SHAN MORAN SHAVING MACHINE OPERATOR Ot 793.19 OTHER NONSPECIFIC ABNORMAL FINDING OF MIN 10/22/2015 RICHY, GASTON N Ot 162.9 MAL ELISEO BRONCH/LUNG NOS 10/22/2015 GASTON LOCKHART N Ot 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 10/22/2015 SHAN MORAN SHAVING MACHINE OPERATOR Ot 162.3 MAL ELISEO UPPER LOBE LUNG 10/22/2015 SHAN MORAN SHAVING MACHINE OPERATOR Ot 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 10/22/2015 SHAN MORAN SHAVING MACHINE OPERATOR Ot V15.3 HX OF IRRADIATION 10/22/2015 SHAN MORAN SHAVING MACHINE OPERATOR Ot V58.69 OTH MED,LT,CURRENT USE 10/22/2015 NGHIA MORANRONAL S SHAVING MACHINE OPERATOR Ot V87.41 PERSONAL HISTORY OF ANTINEOPLASTIC CHEMO 10/22/2015 NY MEYERS DO Ot 162.9 MAL ELISEO BRONCH/LUNG NOS 10/22/2015 NY MEYERS DO Ot 428.0 CONGESTIVE HEART FAILURE NOS 10/22/2015 NY MEYERS DO Ot 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 10/22/2015 NY MEYERS DO Ot 518.0 PULMONARY COLLAPSE 10/22/2015 NY MEYERS DO Ot 793.19 OTHER NONSPECIFIC ABNORMAL FINDING OF MIN 10/22/2015 NY MEYERS DO Ot 162.9 MAL ELISEO BRONCH/LUNG NOS 10/22/2015 NY MEYERS DO Ot 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 10/22/2015 NY MEYERS DO Ot 585.3 CHRONIC KIDNEY DISEASE, STAGE III (MODER 10/22/2015 NY MEYERS DO Ot 793.19 OTHER NONSPECIFIC ABNORMAL FINDING OF MIN 10/22/2015 NY MEYERS DO Ot V72.84 EXAM PRE-OPERATIVE NOS 10/22/2015 NY MEYERS DO Ot 162.9 MAL ELISEO BRONCH/LUNG NOS 10/22/2015 NY MEYERS DO Ot 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 10/22/2015 NY MEYERS DO Ot 585.3 CHRONIC KIDNEY DISEASE, STAGE III (MODER 10/22/2015 NY MEYERS DO Ot 162.9 MAL ELISEO BRONCH/LUNG NOS 10/22/2015 NY MEYERS DO Ot 793.19 OTHER NONSPECIFIC ABNORMAL FINDING OF MIN 10/22/2015 LOCO GARZA DO Ot 783.1 ABNORMAL WEIGHT GAIN 10/22/2015 GASTON LOCKHART Ot 162.9 MAL ELISEO BRONCH/LUNG NOS 10/22/2015 GASTON LOCKHART N Ot 492.8 EMPHYSEMA NEC 10/22/2015 GASTON LOCKHART Ot 571.8 CHRONIC LIVER DIS NEC 10/22/2015 GASTON LOCKHART Ot 789.1 HEPATOMEGALY 10/22/2015 NY MEYERS DO Ot 162.9 MAL ELISEO BRONCH/LUNG NOS 10/22/2015 NY MEYERS DO Ot 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 10/22/2015 GASTON LOCKHART Ot 162.9 MAL ELISEO BRONCH/LUNG NOS 10/22/2015 Ot 785.0 TACHYCARDIA NOS 10/22/2015 Ot 785.1 PALPITATIONS 10/22/2015 NY MEYERS DO Ot 162.9 MAL ELISEO BRONCH/LUNG NOS 10/22/2015 NY MEYERS DO Ot 278.00 OBESITY, NOS 10/22/2015 NY MEYERS DO Ot 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 10/22/2015 MORRO BURT MD Ot 272.4 HYPERLIPIDEMIA NEC/NOS 10/22/2015 MORRO BURT MD Ot 401.9 HYPERTENSION NOS 10/22/2015 MORRO BURT MD Ot 428.0 CONGESTIVE HEART FAILURE NOS 10/22/2015 MORRO BURT MD Ot 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 10/22/2015 MORRO BURT MD Ot 272.4 HYPERLIPIDEMIA NEC/NOS 10/22/2015 MORRO BURT MD Ot 401.9 HYPERTENSION NOS 10/22/2015 MORRO BURT MD Ot 428.0 CONGESTIVE HEART FAILURE NOS 10/22/2015 MORRO BURT MD Ot 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 10/22/2015 MORRO BURT MD Ot 272.4 HYPERLIPIDEMIA NEC/NOS 10/22/2015 MORRO BURT MD Ot 401.9 HYPERTENSION NOS 10/22/2015 MORRO BURT MD Ot 428.0 CONGESTIVE HEART FAILURE NOS 10/22/2015 MORRO BURT MD Ot 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 10/22/2015 SHAN MORAN SHAVING MACHINE OPERATOR Ot 162.3 MAL ELISEO UPPER LOBE LUNG 10/22/2015 SHAN MORAN SHAVING MACHINE OPERATOR Ot 414.00 CORON ATHEROSCLER NOS TYPE VESSEL, NATIV 10/22/2015 SHAN MORAN SHAVING MACHINE OPERATOR Ot 428.0 CONGESTIVE HEART FAILURE NOS 10/22/2015 SHAN MORAN SHAVING MACHINE OPERATOR Ot 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 10/22/2015 SHAN MORAN SHAVING MACHINE OPERATOR Ot 585.3 CHRONIC KIDNEY DISEASE, STAGE III ( MODER 10/22/2015 SHAN MORAN SHAVING MACHINE OPERATOR Ot V58.66 LONG-TERM (CURRENT) USE OF ASPIRIN 10/22/2015 SHAN MORAN SHAVING MACHINE OPERATOR Ot V58.69 OT MED,LT,CURRENT USE 10/22/2015 GASTON LOCKHART N Ot 162.9 MAL ELISEO BRONCH/LUNG NOS 10/22/2015 SHAN MORAN SHAVING MACHINE OPERATOR Ot 162.9 MAL ELISEO BRONCH/LUNG NOS 10/22/2015 SHAN MORAN SHAVING MACHINE OPERATOR Ot 571.8 CHRONIC LIVER DIS NEC 10/22/2015 SHAN MORAN SHAVING MACHINE OPERATOR Ot 793.6 NOSP (ABN) FINDINGS ON RADIOLOGICAL OT 10/22/2015 SHAN MORAN SHAVING MACHINE OPERATOR Ot C34.90 MALIGNANT NEOPLASM OF UNSP PART OF UNSP 10/22/2015 MORRO BURT MD Ot E78.5 HYPERLIPIDEMIA, UNSPECIFIED 10/22/2015 MORRO BURT MD Ot I10 ESSENTIAL (PRIMARY) HYPERTENSION 10/22/2015 MORRO BURT MD Ot I50.9 HEART FAILURE, UNSPECIFIED 10/22/2015 MORRO BURT MD Ot J44.9 CHRONIC OBSTRUCTIVE PULMONARY DISEASE, U 10/22/2015 SHAN MORAN SHAVING MACHINE OPERATOR Ot R91.8 OTHER NONSPECIFIC ABNORMAL FINDING OF MIN 10/22/2015 SHAN MORAN SHAVING MACHINE OPERATOR Ot Z85.118 PERSONAL HISTORY OF MALIGNANT NEOPLASM O 10/22/2015 MORANSHAN Francis SHAVING MACHINE OPERATOR Ot C34.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, LEFT B 10/22/2015 MORANSHAN Francis Penny SHAVING MACHINE OPERATOR Ot F17.210 NICOTINE DEPENDENCE, CIGARETTES, UNCOMPL 10/22/2015 MORANSHAN Francis Penny SHAVING MACHINE OPERATOR Ot J44.9 CHRONIC OBSTRUCTIVE PULMONARY DISEASE, U 10/22/2015 MORANSHAN SHAVING MACHINE OPERATOR Ot Z92.21 PERSONAL HISTORY OF ANTINEOPLASTIC CHEMO 10/22/2015 NGHIA MORANRONAL S SHAVING MACHINE OPERATOR Ot Z92.3 PERSONAL HISTORY OF IRRADIATION 10/22/2015 JAVED GILES, MORRO Tinsley Ot E78.5 HYPERLIPIDEMIA, UNSPECIFIED 10/22/2015 MIRYAM TRINIDAD, ROLA Hernadez Ot E78.2 MIXED HYPERLIPIDEMIA 10/22/2015 GASTON LOCKHART Ot C34.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, LEFT B 10/22/2015 NICOLASA MALHOTRA, PAUL Tinsley Ot M48.02 SPINAL STENOSIS, CERVICAL REGION 10/22/2015 NICOLASA MALHOTRA, PAUL Tinsley Ot M54.2 CERVICALGIA 10/22/2015 GASTON LOCKHART N Ot C34.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, LEFT B 10/22/2015 GASTON LOCKHART N Ot F17.210 NICOTINE DEPENDENCE, CIGARETTES, UNCOMPL 10/22/2015 GASTON LOCKHART N Ot J44.9 CHRONIC OBSTRUCTIVE PULMONARY DISEASE, U 10/22/2015 RICHYGASTON N Ot Z92.21 PERSONAL HISTORY OF ANTINEOPLASTIC CHEMO 10/22/2015 GASTON LOCKHART N Ot Z92.3 PERSONAL HISTORY OF IRRADIATION 10/22/2015 JAVED GILES, MORRO Tinsley Ot E78.2 MIXED HYPERLIPIDEMIA 10/23/2015 NGHIA MORANRONAL Penny SHAVING MACHINE OPERATOR Ot C34.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, LEFT B 10/23/2015 SHAN MORAN SHAVING MACHINE OPERATOR Ot C34.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, LEFT B 10/28/2015 SHAN MORAN SHAVING MACHINE OPERATOR Ot C34.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, LEFT B 2015 RANDOLPH KEBEDE MD Ot E78.5 HYPERLIPIDEMIA, UNSPECIFIED 2015 RANDOLPH KEBEDE MD Ot H91.90 UNSPECIFIED HEARING LOSS, UNSPECIFIED EA 2015 RANDOLPH KEBEDE MD Ot I12.9 HYPERTENSIVE CHRONIC KIDNEY DISEASE W ST 2015 RANDOLPH KEBEDE MD Ot I48.91 UNSPECIFIED ATRIAL FIBRILLATION 2015 RANDOLPH KEBEDE MD Ot 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 2015 RANDOLPH KEBEDE MD Ot J44.9 CHRONIC OBSTRUCTIVE PULMONARY DISEASE, U 2015 RANDOLPH KEBEDE MD Ot K21.9 GASTRO-ESOPHAGEAL REFLUX DISEASE WITHOUT 2015 RANDOLPH KEBEDE MD Ot K86.9 DISEASE OF PANCREAS, UNSPECIFIED 2015 RANDOLPH KEBEDE MD, Ot N18.3 CHRONIC KIDNEY DISEASE, STAGE 3 (MODERAT 2015 RANDOLPH KEBEDE MD Ot Z85.118 PERSONAL HISTORY OF MALIGNANT NEOPLASM O 2015 RANDOLPH KEBEDE MD Ot Z87.891 PERSONAL HISTORY OF NICOTINE DEPENDENCE 2015 GASTON LOCKHART Ot C34.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, LEFT B 2015 JAVED GILES, MORRO Tinsley Ot E78.2 MIXED HYPERLIPIDEMIA 11/11/2015 GASTON LOCKHART Ot C34.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, LEFT B 11/11/2015 GASTON LOCKHART Ot F17.210 NICOTINE DEPENDENCE, CIGARETTES, UNCOMPL 11/11/2015 GASTON LOCKHART Ot J44.9 CHRONIC OBSTRUCTIVE PULMONARY DISEASE, U 11/11/2015 GASTON LOCKHART Ot Z92.21 PERSONAL HISTORY OF ANTINEOPLASTIC CHEMO 11/11/2015 GASTON LOCKHART Ot Z92.3 PERSONAL HISTORY OF IRRADIATION 11/14/2015 GASTON LOCKHART Ot C34.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, LEFT B 11/14/2015 GASTON LOCKHART Ot F17.210 NICOTINE DEPENDENCE, CIGARETTES, UNCOMPL 11/14/2015 GASTON LOCKHART Ot J44.9 CHRONIC OBSTRUCTIVE PULMONARY DISEASE, U 11/14/2015 GASTON LOCKHART Ot Z92.21 PERSONAL HISTORY OF ANTINEOPLASTIC CHEMO 11/14/2015 GASTON LOCKHART Ot Z92.3 PERSONAL HISTORY OF IRRADIATION 11/15/2015 GASTON LOCKHART Ot C34.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, LEFT B 11/15/2015 GASTON LOCKHART Ot F17.210 NICOTINE DEPENDENCE, CIGARETTES, UNCOMPL 11/15/2015 GASTON LOCKHART Ot J44.9 CHRONIC OBSTRUCTIVE PULMONARY DISEASE, U 11/15/2015 GASTON LOCKHART Ot Z92.21 PERSONAL HISTORY OF ANTINEOPLASTIC CHEMO 11/15/2015 GASTON LOCKHART Ot Z92.3 PERSONAL HISTORY OF IRRADIATION 11/21/2015 SHAN MORAN S SHAVING MACHINE OPERATOR Ot C34.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, LEFT B 11/25/2015 Ot 724.4 LUMBOSACRAL NEURITIS NOS 11/25/2015 Ot 786.09 RESPIRATORY ABNORM NEC 11/25/2015 Ot 786.50 CHEST PAIN NOS 11/25/2015 Ot 397.0 TRICUSPID VALVE DISEASE 11/25/2015 Ot 401.9 HYPERTENSION NOS 11/25/2015 Ot 424.0 MITRAL VALVE DISORDER 11/25/2015 Ot 428.0 CONGESTIVE HEART FAILURE NOS 11/25/2015 DARLING GILES, BRENDA P Ot 786.30 HEMOPTYSIS, UNSPECIFIED 11/25/2015 DARLING GILES, BRENDA P Ot 786.6 CHEST SWELLING/MASS/LUMP 11/25/2015 DARLING GILES, BRENDA P Ot 414.01 CORONARY ATHEROSCLEROSIS OF [place] CORON 11/25/2015 DARLING GILES, BRENDA P Ot 786.6 CHEST SWELLING/MASS/LUMP 11/25/2015 SHAN MORAN SHAVING MACHINE OPERATOR Ot 162.3 MAL ELISEO UPPER LOBE LUNG 11/25/2015 SHAN MORAN S SHAVING MACHINE OPERATOR Ot 414.00 CORON ATHEROSCLER NOS TYPE VESSEL, NATIV 11/25/2015 SHAN MORAN S SHAVING MACHINE OPERATOR Ot 428.0 CONGESTIVE HEART FAILURE NOS 11/25/2015 SHAN MORAN S SHAVING MACHINE OPERATOR Ot 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 11/25/2015 SHAN MORAN S SHAVING MACHINE OPERATOR Ot 585.3 CHRONIC KIDNEY DISEASE, STAGE III ( MODER 11/25/2015 SHAN MORAN S SHAVING MACHINE OPERATOR Ot V58.66 LONG-TERM (CURRENT) USE OF ASPIRIN 11/25/2015 SHAN MORAN SHAVING MACHINE OPERATOR Ot V58.69 OTH MED,LT,CURRENT USE 11/25/2015 SHAN MORAN S SHAVING MACHINE OPERATOR Ot 162.3 MAL ELISEO UPPER LOBE LUNG 11/25/2015 SHAN MORAN S SHAVING MACHINE OPERATOR Ot 414.00 CORON ATHEROSCLER NOS TYPE VESSEL, NATIV 11/25/2015 SHAN MORAN S SHAVING MACHINE OPERATOR Ot 428.0 CONGESTIVE HEART FAILURE NOS 11/25/2015 SHAN MORAN S SHAVING MACHINE OPERATOR Ot 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 11/25/2015 SHAN MORAN S SHAVING MACHINE OPERATOR Ot 585.3 CHRONIC KIDNEY DISEASE, STAGE III ( MODER 11/25/2015 SHAN MORAN S SHAVING MACHINE OPERATOR Ot V58.66 LONG-TERM (CURRENT) USE OF ASPIRIN 11/25/2015 SHAN MORAN S SHAVING MACHINE OPERATOR Ot V58.69 OTH MED,LT,CURRENT USE 11/25/2015 SHAN MORAN S SHAVING MACHINE OPERATOR Ot 162.3 MAL ELISEO UPPER LOBE LUNG 11/25/2015 SHAN MORAN S SHAVING MACHINE OPERATOR Ot 414.00 CORON ATHEROSCLER NOS TYPE VESSEL, NATIV 11/25/2015 SHAN MORAN S SHAVING MACHINE OPERATOR Ot 428.0 CONGESTIVE HEART FAILURE NOS 11/25/2015 SHAN MORAN S SHAVING MACHINE OPERATOR Ot 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 11/25/2015 SHAN MORAN S SHAVING MACHINE OPERATOR Ot 585.3 CHRONIC KIDNEY DISEASE, STAGE III ( MODER 11/25/2015 SHAN MORAN S SHAVING MACHINE OPERATOR Ot V58.66 LONG-TERM (CURRENT) USE OF ASPIRIN 11/25/2015 SHAN MORAN S SHAVING MACHINE OPERATOR Ot V58.69 OTH MED,LT,CURRENT USE 11/25/2015 SHAN MORAN S SHAVING MACHINE OPERATOR Ot 162.3 MAL ELISEO UPPER LOBE LUNG 11/25/2015 SHAN MORAN S SHAVING MACHINE OPERATOR Ot 162.9 MAL ELISEO BRONCH/LUNG NOS 11/25/2015 SHAN MORAN S SHAVING MACHINE OPERATOR Ot 473.0 CHR MAXILLARY SINUSITIS 11/25/2015 SHAN MORAN S SHAVING MACHINE OPERATOR Ot 780.4 DIZZINESS AND GIDDINESS 11/25/2015 SHAN MORAN S SHAVING MACHINE OPERATOR Ot 784.0 HEADACHE 11/25/2015 SHAN MORAN S SHAVING MACHINE OPERATOR Ot 162.9 MAL ELISEO BRONCH/LUNG NOS 11/25/2015 SHAN MORAN S SHAVING MACHINE OPERATOR Ot 272.0 PURE HYPERCHOLESTEROLEM 11/25/2015 SHAN MORAN S SHAVING MACHINE OPERATOR Ot 403.90 HYPTNSV CHR KID DIS, UNSPEC, W CHR KD ST 11/25/2015 SHAN MORAN S SHAVING MACHINE OPERATOR Ot 414.01 CORONARY ATHEROSCLEROSIS OF [place] CORON 11/25/2015 SHAN MORAN S SHAVING MACHINE OPERATOR Ot 428.0 CONGESTIVE HEART FAILURE NOS 11/25/2015 SHAN MORAN SHAVING MACHINE OPERATOR Ot 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 11/25/2015 SHAN MORAN SHAVING MACHINE OPERATOR Ot 585.3 CHRONIC KIDNEY DISEASE, STAGE III ( MODER 11/25/2015 SHAN MORAN SHAVING MACHINE OPERATOR Ot 715.90 OSTEOARTHROS NOS-UNSPEC 11/25/2015 SHAN MORAN SHAVING MACHINE OPERATOR Ot 784.0 HEADACHE 11/25/2015 GASTON LOCKHART N Ot 162.9 MAL ELISEO BRONCH/LUNG NOS 11/25/2015 SHAN MORAN SHAVING MACHINE OPERATOR Ot 162.3 MAL ELISEO UPPER LOBE LUNG 11/25/2015 SHAN MORAN SHAVING MACHINE OPERATOR Ot 272.0 PURE HYPERCHOLESTEROLEM 11/25/2015 SHAN MORAN SHAVING MACHINE OPERATOR Ot 403.90 HYPTNSV CHR KID DIS, UNSPEC, W CHR KD ST 11/25/2015 SHAN MORAN SHAVING MACHINE OPERATOR Ot 414.01 CORONARY ATHEROSCLEROSIS OF [place] CORON 11/25/2015 SHAN MORAN SHAVING MACHINE OPERATOR Ot 428.0 CONGESTIVE HEART FAILURE NOS 11/25/2015 SHAN MORAN SHAVING MACHINE OPERATOR Ot 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 11/25/2015 SHAN MORAN SHAVING MACHINE OPERATOR Ot 585.3 CHRONIC KIDNEY DISEASE, STAGE III ( MODER 11/25/2015 SHAN MORAN SHAVING MACHINE OPERATOR Ot 715.90 OSTEOARTHROS NOS-UNSPEC 11/25/2015 SHAN MORAN SHAVING MACHINE OPERATOR Ot V58.66 LONG-TERM (CURRENT) USE OF ASPIRIN 11/25/2015 SHAN MORAN SHAVING MACHINE OPERATOR Ot V58.69 OTH MED,LT,CURRENT USE 11/25/2015 SHAN MORAN SHAVING MACHINE OPERATOR Ot 162.9 MAL ELISEO BRONCH/LUNG NOS 11/25/2015 SHAN MORAN SHAVING MACHINE OPERATOR Ot 162.3 MAL ELISEO UPPER LOBE LUNG 11/25/2015 SHAN MORAN SHAVING MACHINE OPERATOR Ot 414.00 CORON ATHEROSCLER NOS TYPE VESSEL, NATIV 11/25/2015 SHAN MORAN SHAVING MACHINE OPERATOR Ot 428.0 CONGESTIVE HEART FAILURE NOS 11/25/2015 SHAN MORAN SHAVING MACHINE OPERATOR Ot 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 11/25/2015 SHAN MORAN SHAVING MACHINE OPERATOR Ot 585.3 CHRONIC KIDNEY DISEASE, STAGE III ( MODER 11/25/2015 SHAN MORAN SHAVING MACHINE OPERATOR Ot V58.66 LONG-TERM (CURRENT) USE OF ASPIRIN 11/25/2015 SHAN MORAN SHAVING MACHINE OPERATOR Ot V58.69 OTH MED,LT,CURRENT USE 11/25/2015 SHAN MORAN SHAVING MACHINE OPERATOR Ot 162.9 MAL ELISEO BRONCH/LUNG NOS 11/25/2015 SHAN MORAN SHAVING MACHINE OPERATOR Ot 793.19 OTHER NONSPECIFIC ABNORMAL FINDING OF MIN 11/25/2015 GASTON LOCKHART N Ot 162.9 MAL ELISEO BRONCH/LUNG NOS 11/25/2015 GASTON LOCKHART N Ot 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 11/25/2015 SHAN MORAN SHAVING MACHINE OPERATOR Ot 162.3 MAL ELISEO UPPER LOBE LUNG 11/25/2015 SHAN MORAN SHAVING MACHINE OPERATOR Ot 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 11/25/2015 SHAN MORAN SHAVING MACHINE OPERATOR Ot V15.3 HX OF IRRADIATION 11/25/2015 SHAN MORAN SHAVING MACHINE OPERATOR Ot V58.69 OTH MED,LT,CURRENT USE 11/25/2015 SHAN MORAN SHAVING MACHINE OPERATOR Ot V87.41 PERSONAL HISTORY OF ANTINEOPLASTIC CHEMO 11/25/2015 NY MEYERS DO Ot 162.9 MAL ELISEO BRONCH/LUNG NOS 11/25/2015 NY MEYERS DO Ot 428.0 CONGESTIVE HEART FAILURE NOS 11/25/2015 NY MEYERS DO Ot 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 11/25/2015 NY MEYERS DO Ot 518.0 PULMONARY COLLAPSE 11/25/2015 NY MEYERS DO Ot 793.19 OTHER NONSPECIFIC ABNORMAL FINDING OF MIN 11/25/2015 NY MEYERS DO Ot 162.9 MAL ELISEO BRONCH/LUNG NOS 11/25/2015 NY MEYERS DO Ot 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 11/25/2015 NY MEYERS DO Ot 585.3 CHRONIC KIDNEY DISEASE, STAGE III (MODER 11/25/2015 NY MEYERS DO Ot 793.19 OTHER NONSPECIFIC ABNORMAL FINDING OF MIN 11/25/2015 NY MEYERS DO Ot V72.84 EXAM PRE-OPERATIVE NOS 11/25/2015 NY MEYERS DO Ot 162.9 MAL ELISEO BRONCH/LUNG NOS 11/25/2015 NY MEYERS DO Ot 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 11/25/2015 NY MEYERS DO Ot 585.3 CHRONIC KIDNEY DISEASE, STAGE III (MODER 11/25/2015 NY MEYERS DO Ot 162.9 MAL ELISEO BRONCH/LUNG NOS 11/25/2015 NY MEYERS DO Ot 793.19 OTHER NONSPECIFIC ABNORMAL FINDING OF MIN 11/25/2015 LOCO GARZA DO Ot 783.1 ABNORMAL WEIGHT GAIN 11/25/2015 GASTON LOCKHART Ot 162.9 MAL ELISEO BRONCH/LUNG NOS 11/25/2015 GASTON LOCKHART N Ot 492.8 EMPHYSEMA NEC 11/25/2015 GASTON LOCKHART N Ot 571.8 CHRONIC LIVER DIS NEC 11/25/2015 GASTON LOCKHART Ot 789.1 HEPATOMEGALY 11/25/2015 NY MEYERS DO Ot 162.9 MAL ELISEO BRONCH/LUNG NOS 11/25/2015 NY MEYERS DO Ot 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 11/25/2015 GASTON LOCKHART Ot 162.9 MAL ELISEO BRONCH/LUNG NOS 11/25/2015 Ot 785.0 TACHYCARDIA NOS 11/25/2015 Ot 785.1 PALPITATIONS 11/25/2015 NY MEYERS DO Ot 162.9 MAL ELISEO BRONCH/LUNG NOS 11/25/2015 NY MEYERS DO Ot 278.00 OBESITY, NOS 11/25/2015 NY MEYERS DO Ot 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 11/25/2015 MORRO BURT MD Ot 272.4 HYPERLIPIDEMIA NEC/NOS 11/25/2015 MORRO BURT MD Ot 401.9 HYPERTENSION NOS 11/25/2015 MORRO BURT MD Ot 428.0 CONGESTIVE HEART FAILURE NOS 11/25/2015 MORRO BURT MD Ot 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 11/25/2015 MORRO BURT MD Ot 272.4 HYPERLIPIDEMIA NEC/NOS 11/25/2015 MORRO BURT MD Ot 401.9 HYPERTENSION NOS 11/25/2015 MORRO BURT MD Ot 428.0 CONGESTIVE HEART FAILURE NOS 11/25/2015 MORRO BURT MD Ot 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 11/25/2015 MORRO BURT MD Ot 272.4 HYPERLIPIDEMIA NEC/NOS 11/25/2015 MORRO BURT MD Ot 401.9 HYPERTENSION NOS 11/25/2015 JAVED GILES, MORRO Tinsley Ot 428.0 CONGESTIVE HEART FAILURE NOS 11/25/2015 JAVED GILES, MORRO Tinsley Ot 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 11/25/2015 SHAN MORAN SHAVING MACHINE OPERATOR Ot 162.3 MAL ELISEO UPPER LOBE LUNG 11/25/2015 SHAN MORAN SHAVING MACHINE OPERATOR Ot 414.00 CORON ATHEROSCLER NOS TYPE VESSEL, NATIV 11/25/2015 SHAN MORAN SHAVING MACHINE OPERATOR Ot 428.0 CONGESTIVE HEART FAILURE NOS 11/25/2015 SHAN MORAN SHAVING MACHINE OPERATOR Ot 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 11/25/2015 SHAN MORAN SHAVING MACHINE OPERATOR Ot 585.3 CHRONIC KIDNEY DISEASE, STAGE III ( MODER 11/25/2015 SHAN MORAN SHAVING MACHINE OPERATOR Ot V58.66 LONG-TERM (CURRENT) USE OF ASPIRIN 11/25/2015 SHAN MORAN SHAVING MACHINE OPERATOR Ot V58.69 OTH MED,LT,CURRENT USE 11/25/2015 GASTON LOCKHART Ot 162.9 MAL ELISEO BRONCH/LUNG NOS 11/25/2015 SHAN MORAN SHAVING MACHINE OPERATOR Ot 162.9 MAL ELISEO BRONCH/LUNG NOS 11/25/2015 SHAN MORAN SHAVING MACHINE OPERATOR Ot 571.8 CHRONIC LIVER DIS NEC 11/25/2015 SHAN MORAN SHAVING MACHINE OPERATOR Ot 793.6 NOSP (ABN) FINDINGS ON RADIOLOGICAL OT 11/25/2015 SHAN MORAN SHAVING MACHINE OPERATOR Ot C34.90 MALIGNANT NEOPLASM OF UNSP PART OF UNSP 11/25/2015 JAVED GILES, MORRO Tinsley Ot E78.5 HYPERLIPIDEMIA, UNSPECIFIED 11/25/2015 JAVED GILES, MORRO Tinsley Ot I10 ESSENTIAL (PRIMARY) HYPERTENSION 11/25/2015 MORRO BURT MD Ot I50.9 HEART FAILURE, UNSPECIFIED 11/25/2015 MORRO BURT MD Ot J44.9 CHRONIC OBSTRUCTIVE PULMONARY DISEASE, U 11/25/2015 SHAN MORAN SHAVING MACHINE OPERATOR Ot R91.8 OTHER NONSPECIFIC ABNORMAL FINDING OF MIN 11/25/2015 SHAN MORAN SHAVING MACHINE OPERATOR Ot Z85.118 PERSONAL HISTORY OF MALIGNANT NEOPLASM O 11/25/2015 SHAN MORAN SHAVING MACHINE OPERATOR Ot C34.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, LEFT B 11/25/2015 SHAN MORAN Ot F17.210 NICOTINE DEPENDENCE, CIGARETTES, UNCOMPL 11/25/2015 SHAN MORAN Ot J44.9 CHRONIC OBSTRUCTIVE PULMONARY DISEASE, U 11/25/2015 SHAN MORANP Ot Z92.21 PERSONAL HISTORY OF ANTINEOPLASTIC CHEMO 11/25/2015 SHAN MORANP Ot Z92.3 PERSONAL HISTORY OF IRRADIATION 11/25/2015 JAVED GILES, MORRO Tinsley Ot E78.5 HYPERLIPIDEMIA, UNSPECIFIED 11/25/2015 MIRYAM TRINIDAD, ROLA Hernadez Ot E78.2 MIXED HYPERLIPIDEMIA 11/25/2015 GASTON LOCKHART Ot C34.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, LEFT B 11/25/2015 NICOLASA MALHOTRA, PAUL Tinsley Ot M48.02 SPINAL STENOSIS, CERVICAL REGION 11/25/2015 NICOLASA MALHOTRA, PAUL Tinsley Ot M54.2 CERVICALGIA 11/25/2015 JAVED GILES, MORRO Tinsley Ot E78.2 MIXED HYPERLIPIDEMIA 11/25/2015 SHAN MORANP Ot C34.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, LEFT B 11/25/2015 RICHY, GASTON Doherty Ot C34.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, LEFT B 11/25/2015 GASTON LOCKHART Ot F17.210 NICOTINE DEPENDENCE, CIGARETTES, UNCOMPL 11/25/2015 GASTON LOCKHART Ot J44.9 CHRONIC OBSTRUCTIVE PULMONARY DISEASE, U 11/25/2015 RICHYGASTON Ot R82.99 OTHER ABNORMAL FINDINGS IN URINE 11/25/2015 GASTON LOCKHART Ot Z92.21 PERSONAL HISTORY OF ANTINEOPLASTIC CHEMO 11/25/2015 GASTON LOCKHART N Ot Z92.3 PERSONAL HISTORY OF IRRADIATION 12/03/2015 GASTON LOCKHART N Ot C34.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, LEFT B 12/09/2015 SHAN MORANP Ot C34.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, LEFT B 01/07/2016 [place] MEYERS DO Ot J44.9 CHRONIC OBSTRUCTIVE PULMONARY DISEASE, U 01/08/2016 RICHY, GASTON N Ot C34.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, LEFT B 01/08/2016 GASTON LOCKHART Ot F17.210 NICOTINE DEPENDENCE, CIGARETTES, UNCOMPL 01/08/2016 GASTON LOCKHART N Ot J44.9 CHRONIC OBSTRUCTIVE PULMONARY DISEASE, U 01/08/2016 GASTON LOCKHART N Ot R82.99 OTHER ABNORMAL FINDINGS IN URINE 01/08/2016 GASTON LOCKHART N Ot Z92.21 PERSONAL HISTORY OF ANTINEOPLASTIC CHEMO 01/08/2016 GASTON LOCKHART N Ot Z92.3 PERSONAL HISTORY OF IRRADIATION 01/21/2016 [place] MEYERS DO Ot J44.9 CHRONIC OBSTRUCTIVE PULMONARY DISEASE, U 01/21/2016 GASTON LOCKHART N Ot C34.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, LEFT B 01/21/2016 GASTON LOCKHART N Ot F17.210 NICOTINE DEPENDENCE, CIGARETTES, UNCOMPL 01/21/2016 GASTON LOCKHART N Ot J44.9 CHRONIC OBSTRUCTIVE PULMONARY DISEASE, U 01/21/2016 GASTON LOCKHART N Ot R82.99 OTHER ABNORMAL FINDINGS IN URINE 01/21/2016 GASTON LOCKHART N Ot Z92.21 PERSONAL HISTORY OF ANTINEOPLASTIC CHEMO 01/21/2016 GASTON LOCKHART N Ot Z92.3 PERSONAL HISTORY OF IRRADIATION 02/13/2016 GASTON LOCKHART N Ot C34.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, LEFT B 02/13/2016 GASTON LOCKHART N Ot F17.210 NICOTINE DEPENDENCE, CIGARETTES, UNCOMPL 02/13/2016 GASTON LOCKHART N Ot J44.9 CHRONIC OBSTRUCTIVE PULMONARY DISEASE, U 02/13/2016 GASTON LOCKHART N Ot R82.99 OTHER ABNORMAL FINDINGS IN URINE 02/13/2016 GASTON LOCKHART N Ot Z92.21 PERSONAL HISTORY OF ANTINEOPLASTIC CHEMO 02/13/2016 GASTON LOCKHART N Ot Z92.3 PERSONAL HISTORY OF IRRADIATION 02/13/2016 GASTON LOCKHART N Ot C34.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, LEFT B 02/13/2016 GASTON LOCKHART N Ot F17.210 NICOTINE DEPENDENCE, CIGARETTES, UNCOMPL 02/13/2016 GASTON LOCKHART N Ot J44.9 CHRONIC OBSTRUCTIVE PULMONARY DISEASE, U 02/13/2016 GASTON LOCKHART N Ot R82.99 OTHER ABNORMAL FINDINGS IN URINE 02/13/2016 GASTON LOCKHART N Ot Z92.21 PERSONAL HISTORY OF ANTINEOPLASTIC CHEMO 02/13/2016 GASTON LOCKHART N Ot Z92.3 PERSONAL HISTORY OF IRRADIATION 02/13/2016 LOCO GARZA DO Ot C34.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, LEFT B 02/13/2016 LOCO GARZA DO Ot F17.210 NICOTINE DEPENDENCE, CIGARETTES, UNCOMPL 02/13/2016 LOCO GARZA DO Ot J44.9 CHRONIC OBSTRUCTIVE PULMONARY DISEASE, U 02/13/2016 LOCO GARZA DO Ot R82.99 OTHER ABNORMAL FINDINGS IN URINE 02/13/2016 LOCO GARZA DO Ot Z92.21 PERSONAL HISTORY OF ANTINEOPLASTIC CHEMO 02/13/2016 LOCO GARZA DO Ot Z92.3 PERSONAL HISTORY OF IRRADIATION 02/13/2016 LOCO GARZA DO Ot C34.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, LEFT B 02/13/2016 LOCO GARZA DO Ot Z20.828 CONTACT W AND EXPOSURE TO OTH VIRAL COMM 02/14/2016 GASTON LOCKHART Chas Ot C34.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, LEFT B 02/14/2016 GASTON LOCKHART Chas Ot F17.210 NICOTINE DEPENDENCE, CIGARETTES, UNCOMPL 02/14/2016 GASTON LOCKHART Chas Ot J44.9 CHRONIC OBSTRUCTIVE PULMONARY DISEASE, U 02/14/2016 GASTON LOCKHART Chas Ot R82.99 OTHER ABNORMAL FINDINGS IN URINE 02/14/2016 GASTON LOCKHART Chas Ot Z92.21 PERSONAL HISTORY OF ANTINEOPLASTIC CHEMO 02/14/2016 RICHY GASTON Doherty Ot Z92.3 PERSONAL HISTORY OF IRRADIATION 02/17/2016 LOCO GARZA DO Ot C34.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, LEFT B 02/17/2016 LOCO GARZA DO Ot Z20.828 CONTACT W AND EXPOSURE TO OTH VIRAL COMM 02/17/2016 LOCO GARZA DO Ot C34.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, LEFT B 02/17/2016 LOCO GARZA DO Ot Z20.828 CONTACT W AND EXPOSURE TO OTH VIRAL COMM 02/23/2016 NY MEYERS DO Ot J44.9 CHRONIC OBSTRUCTIVE PULMONARY DISEASE, U 02/29/2016 NY MEYERS DO, Ot J44.9 CHRONIC OBSTRUCTIVE PULMONARY DISEASE, U 03/05/2016 LOCO GARZA DO Ot C34.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, LEFT B 03/05/2016 LOCO GARZA DO Ot Z20.828 CONTACT W AND EXPOSURE TO OTH VIRAL COMM 03/22/2016 GASTON LOCKHART Ot C34.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, LEFT B 03/22/2016 GASTON LOCKHART Ot F17.210 NICOTINE DEPENDENCE, CIGARETTES, UNCOMPL 03/22/2016 GASTON LOCKHART Ot J44.9 CHRONIC OBSTRUCTIVE PULMONARY DISEASE, U 03/22/2016 GASTON LOCKHART Ot R82.99 OTHER ABNORMAL FINDINGS IN URINE 03/22/2016 GASTON LOCKHART Ot Z92.21 PERSONAL HISTORY OF ANTINEOPLASTIC CHEMO 03/22/2016 GASTON LOCKHART Ot Z92.3 PERSONAL HISTORY OF IRRADIATION Procedures Results Test Result Range Complete blood count (CBC) with automated white blood cell (WBC) differential - 11/04/15 17:17 Blood leukocytes automated count (number/volume) 9.1 10*3/ uL 4.3-11.0 Blood erythrocytes automated count (number/volume) 5.18 10*6 /uL 4.35-5.85 Venous blood hemoglobin measurement (mass/volume) 14.4 g/dL 13.3-17.7 Blood hematocrit (volume fraction) 44 % 40-54 Automated erythrocyte mean corpuscular volume 84 [foz_us] 80-99 Automated erythrocyte mean corpuscular hemoglobin (mass per erythrocyte) 28 pg 25-34 Automated erythrocyte mean corpuscular hemoglobin concentration measurement ( mass/volume) 33 g/dL 32-36 Automated erythrocyte distribution width ratio 13.8 % 10.0-14.5 Automated blood platelet count (count/volume) 300 10*3/uL 130-400 Automated blood platelet mean volume measurement 11.4 [foz_ us] 7.4-10.4 Automated blood neutrophils/100 leukocytes 73 % 42-75 Automated blood lymphocytes/100 leukocytes 17 % 12-44 Blood monocytes/100 leukocytes 8 % 0-12 Automated blood eosinophils/100 leukocytes 1 % 0-10 Automated blood basophils/100 leukocytes 1 % 0-10 Blood neutrophils automated count (number/volume) 6.7 10*3 1.8-7.8 Blood lymphocytes automated count (number/volume) 1.6 10*3 1.0-4.0 Blood monocytes automated count (number/volume) 0.7 10*3 0.0-1.0 Automated eosinophil count 0.1 10*3/uL 0.0-0.3 Automated blood basophil count (count/volume) 0.1 10*3/uL 0.0-0.1 PT panel in platelet poor plasma by coagulation assay - 11/04/15 17:17 Prothrombin time (PT) in platelet poor plasma by coagulation assay 15.1 s 12.2-14.7 INR in platelet poor plasma or blood by coagulation assay 1.2 0.8-1.4 Activated partial thromboplastin time (aPTT) in platelet poor plasma bycoagulation assay - 11/04/15 17:17 Activated partial thromboplastin time (aPTT) in platelet poor plasma bycoagulation assay 34 s 24-35 Comprehensive metabolic panel - 11/04/15 17:17 Serum or plasma sodium measurement (moles/volume) 140 mmol/ L 135-145 Serum or plasma potassium measurement (moles/volume) 4.5 mmol/L 3.6-5.0 Serum or plasma chloride measurement (moles/volume) 111 mmol /L 98-107 Carbon dioxide 18 mmol/L 21-32 Serum or plasma anion gap determination (moles/volume) 11 mmol/L 5-14 Serum or plasma urea nitrogen measurement (mass/volume) 15 mg/dL 7-18 Serum or plasma creatinine measurement (mass/volume) 1.21 mg /dL 0.60-1.30 Serum or plasma urea nitrogen/creatinine mass ratio 12 NRG Serum or plasma creatinine measurement with calculation of estimated glomerular filtration rate 58 NRG Serum or plasma glucose measurement (mass/volume) 113 mg/dL 70-105 Serum or plasma calcium measurement (mass/volume) 9.6 mg/dL 8.5-10.1 Serum or plasma total bilirubin measurement (mass/volume) 0.5 mg/dL 0.1-1.0 Serum or plasma alkaline phosphatase measurement (enzymatic activity/volume) 48 U/L 40-136 Serum or plasma aspartate aminotransferase measurement (enzymatic activity/ volume) 14 U/L 5-34 Serum or plasma alanine aminotransferase measurement (enzymatic activity/volume ) 14 U/L 0-55 Serum or plasma protein measurement (mass/volume) 6.8 g/dL 6.4-8.2 Serum or plasma albumin measurement (mass/volume) 4.0 g/dL 3.2-4.5 Magnesium - 11/04/15 17:17 Magnesium 1.9 mg/dL 1.8-2.4 Serum or plasma troponin i.cardiac measurement (mass/volume) - 11/04/15 17:17 Serum or plasma troponin i.cardiac measurement (mass/volume) < ng/mL <0.30 Myoglobin, serum - 11/04/15 17:17 Myoglobin, serum 45.0 ng/mL 10.0-92.0 Activated partial thromboplastin time (aPTT) in platelet poor plasma bycoagulation assay - 11/04/15 22:30 Activated partial thromboplastin time (aPTT) in platelet poor plasma bycoagulation assay 53 s 24-35 Bacterial blood culture - 11/04/15 23:15 Bacterial blood culture NG NRG Bacterial blood culture - 11/04/15 23:22 Bacterial blood culture NG NRG Methicillin resistant Staphylococcus aureus (MRSA) screening culture - 23:50 Methicillin resistant Staphylococcus aureus (MRSA) screening culture NEG NRG Complete urinalysis with reflex to culture - 11/05/15 02:20 Urine color determination YELLOW NRG Urine clarity determination CLEAR NRG Urine pH measurement by test strip 5 5- 9 Specific gravity of urine by test strip 1.010 1.016-1.022 Urine protein assay by test strip, semi-quantitative NEGATIVE NEGATIVE Urine glucose detection by automated test strip NEGATIVE NEGATIVE Erythrocytes detection in urine sediment by light microscopy NEGATIVE NEGATIVE Urine ketones detection by automated test strip NEGATIVE NEGATIVE Urine nitrite detection by test strip NEGATIVE NEGATIVE Urine total bilirubin detection by test strip NEGATIVE NEGATIVE Urine urobilinogen measurement by automated test strip (mass/volume) NORMAL NORMAL Urine leukocyte esterase detection by dipstick NEGATIVE NEGATIVE Automated urine sediment erythrocyte count by microscopy (number/high power field) NONE NRG Automated urine sediment leukocyte count by microscopy (number/high power field ) NONE NRG Bacteria detection in urine sediment by light microscopy NEGATIVE NRG Squamous epithelial cells detection in urine sediment by light microscopy 0-2 NRG Crystals detection in urine sediment by light microscopy NONE NRG Casts detection in urine sediment by light microscopy NONE NRG Mucus detection in urine sediment by light microscopy NEGATIVE NRG Complete urinalysis with reflex to culture NO NRG Activated partial thromboplastin time (aPTT) in platelet poor plasma bycoagulation assay - 11/05/15 03:32 Activated partial thromboplastin time (aPTT) in platelet poor plasma bycoagulation assay 48 s 24-35 Complete blood count (CBC) with automated white blood cell (WBC) differential - 11/05/15 03:32 Blood leukocytes automated count (number/volume) 11.3 10*3/ uL 4.3-11.0 Blood erythrocytes automated count (number/volume) 4.71 10*6 /uL 4.35-5.85 Venous blood hemoglobin measurement (mass/volume) 13.2 g/dL 13.3-17.7 Blood hematocrit (volume fraction) 40 % 40-54 Automated erythrocyte mean corpuscular volume 85 [foz_us] 80-99 Automated erythrocyte mean corpuscular hemoglobin (mass per erythrocyte) 28 pg 25-34 Automated erythrocyte mean corpuscular hemoglobin concentration measurement ( mass/volume) 33 g/dL 32-36 Automated erythrocyte distribution width ratio 13.9 % 10.0-14.5 Automated blood platelet count (count/volume) 253 10*3/uL 130-400 Automated blood platelet mean volume measurement 11.8 [foz_ us] 7.4-10.4 Automated blood neutrophils/100 leukocytes 80 % 42-75 Automated blood lymphocytes/100 leukocytes 10 % 12-44 Blood monocytes/100 leukocytes 10 % 0-12 Automated blood eosinophils/100 leukocytes 1 % 0-10 Automated blood basophils/100 leukocytes 0 % 0-10 Blood neutrophils automated count (number/volume) 9.0 10*3 1.8-7.8 Blood lymphocytes automated count (number/volume) 1.1 10*3 1.0-4.0 Blood monocytes automated count (number/volume) 1.1 10*3 0.0-1.0 Automated eosinophil count 0.1 10*3/uL 0.0-0.3 Automated blood basophil count (count/volume) 0.0 10*3/uL 0.0-0.1 Lipid 1996 panel - 11/05/15 03:32 Serum or plasma triglyceride measurement (mass/volume) 129 mg/dL <150 Serum or plasma cholesterol measurement (mass/volume) 110 mg /dL < 200 Serum or plasma cholesterol in HDL measurement (mass/volume) 19 mg/dL 40-60 Cholesterol in LDL [mass/volume] in serum or plasma by direct assay 73 mg/dL 1-129 Serum or plasma cholesterol in VLDL measurement (mass/volume) 26 mg/dL 5-40 Comprehensive metabolic panel - 11/05/15 03:45 Serum or plasma sodium measurement (moles/volume) 142 mmol/ L 135-145 Serum or plasma potassium measurement (moles/volume) 3.9 mmol/L 3.6-5.0 Serum or plasma chloride measurement (moles/volume) 113 mmol /L 98-107 Carbon dioxide 17 mmol/L 21-32 Serum or plasma anion gap determination (moles/volume) 12 mmol/L 5-14 Serum or plasma urea nitrogen measurement (mass/volume) 14 mg/dL 7-18 Serum or plasma creatinine measurement (mass/volume) 0.99 mg /dL 0.60-1.30 Serum or plasma urea nitrogen/creatinine mass ratio 14 NRG Serum or plasma creatinine measurement with calculation of estimated glomerular filtration rate > NRG Serum or plasma glucose measurement (mass/volume) 126 mg/dL 70-105 Serum or plasma calcium measurement (mass/volume) 8.5 mg/dL 8.5-10.1 Serum or plasma total bilirubin measurement (mass/volume) 0.6 mg/dL 0.1-1.0 Serum or plasma alkaline phosphatase measurement (enzymatic activity/volume) 39 U/L 40-136 Serum or plasma aspartate aminotransferase measurement (enzymatic activity/ volume) 13 U/L 5-34 Serum or plasma alanine aminotransferase measurement (enzymatic activity/volume ) 11 U/L 0-55 Serum or plasma protein measurement (mass/volume) 6.0 g/dL 6.4-8.2 Serum or plasma albumin measurement (mass/volume) 3.5 g/dL 3.2-4.5 Serum or plasma phosphate measurement (mass/volume) - 11/05/15 03:45 Serum or plasma phosphate measurement (mass/volume) 3.0 mg/ dL 2.3-4.7 Magnesium - 11/05/15 03:45 Magnesium 1.6 mg/dL 1.8-2.4 Activated partial thromboplastin time (aPTT) in platelet poor plasma bycoagulation assay - 11/05/15 05:59 Activated partial thromboplastin time (aPTT) in platelet poor plasma bycoagulation assay 51 s 24-35 Sputum Gram stain - 11/05/15 08:15 GRAM STAIN SPUTUM AND MIXED BACTERIAL YEN NR Bacterial sputum culture - 11/05/15 08:15 Bacterial sputum culture NORMAL NRG Complete blood count (CBC) with automated white blood cell (WBC) differential - 11/06/15 03:40 Blood leukocytes automated count (number/volume) 9.1 10*3/ uL 4.3-11.0 Blood erythrocytes automated count (number/volume) 4.70 10*6 /uL 4.35-5.85 Venous blood hemoglobin measurement (mass/volume) 13.2 g/dL 13.3-17.7 Blood hematocrit (volume fraction) 40 % 40-54 Automated erythrocyte mean corpuscular volume 86 [foz_us] 80-99 Automated erythrocyte mean corpuscular hemoglobin (mass per erythrocyte) 28 pg 25-34 Automated erythrocyte mean corpuscular hemoglobin concentration measurement ( mass/volume) 33 g/dL 32-36 Automated erythrocyte distribution width ratio 13.5 % 10.0-14.5 Automated blood platelet count (count/volume) 214 10*3/uL 130-400 Automated blood platelet mean volume measurement 12.4 [foz_ us] 7.4-10.4 Automated blood neutrophils/100 leukocytes 73 % 42-75 Automated blood lymphocytes/100 leukocytes 14 % 12-44 Blood monocytes/100 leukocytes 11 % 0-12 Automated blood eosinophils/100 leukocytes 2 % 0-10 Automated blood basophils/100 leukocytes 1 % 0-10 Blood neutrophils automated count (number/volume) 6.6 10*3 1.8-7.8 Blood lymphocytes automated count (number/volume) 1.3 10*3 1.0-4.0 Blood monocytes automated count (number/volume) 1.0 10*3 0.0-1.0 Automated eosinophil count 0.2 10*3/uL 0.0-0.3 Automated blood basophil count (count/volume) 0.1 10*3/uL 0.0-0.1 Whole blood basic metabolic panel - 11/06/15 03:40 Serum or plasma sodium measurement (moles/volume) 142 mmol/ L 135-145 Serum or plasma potassium measurement (moles/volume) 3.6 mmol/L 3.6-5.0 Serum or plasma chloride measurement (moles/volume) 111 mmol /L 98-107 Carbon dioxide 19 mmol/L 21-32 Serum or plasma anion gap determination (moles/volume) 12 mmol/L 5-14 Serum or plasma urea nitrogen measurement (mass/volume) 11 mg/dL 7-18 Serum or plasma creatinine measurement (mass/volume) 0.81 mg /dL 0.60-1.30 Serum or plasma urea nitrogen/creatinine mass ratio 14 NRG Serum or plasma creatinine measurement with calculation of estimated glomerular filtration rate > NRG Serum or plasma glucose measurement (mass/volume) 109 mg/dL 70-105 Serum or plasma calcium measurement (mass/volume) 8.8 mg/dL 8.5-10.1 Serum or plasma phosphate measurement (mass/volume) - 11/06/15 03:40 Serum or plasma phosphate measurement (mass/volume) 2.9 mg/ dL 2.3-4.7 Magnesium - 11/06/15 03:40 Magnesium 1.8 mg/dL 1.8-2.4 Bacterial urine culture - 11/14/15 10:32 Bacterial urine culture [id number] NRG COLONY COUNT <10,000 NRG FTX;REPORTABLE SENSITIVITY REPORTED 11/16/15 12:30 NRG Bacterial susceptibility panel - 11/14/15 10:32 Gentamicin susceptibility test by minimum inhibitory concentration S NRG Vancomycin susceptibility test by minimum inhibitory concentration 1 NRG Levofloxacin susceptibility test by minimum inhibitory concentration 0.5 NRG Tetracycline susceptibility test by minimum inhibitory concentration >= NRG Ampicillin susceptibility test by minimum inhibitory concentration <= NRG Nitrofurantoin susceptibility test by minimum inhibitory concentration <= NRG Linezolid susceptibility test by minimum inhibitory concentration 2 NRG Bacterial urine culture - 11/26/15 14:50 Bacterial urine culture NG NRG Serum hepatitis C virus antibody assay (units/volume) - 02/13/16 14:24 Serum hepatitis C virus antibody detection Non-Reactive Non-Reactive Encounters ACCT No. Visit Date/Time Discharge Status Pt. Type Provider Facility Loc./Unit Complaint [id number] 01/14/2016 14:30:00 2016 00:01:00 DIS Outpatient NY MEYERS DO [facility] PULM COPD [id number] 02/13/2016 14:19:00 2016 00:01:00 DIS Outpatient GASTON LOCKHART [facility] ONC [id number] 10/16/2015 14:00:00 2015 10:53:00 DIS Outpatient GASTON LOCKHART [facility] ONC [id number] 11/04/2015 18:10:00 2015 09:20:00 DIS Inpatient RANDOLPH KEBEDE MD [facility] ICU AFIB W/ RVR [id number] 07/11/2015 10:41:00 2015 00:01:00 DIS Outpatient GASTON LOCKHART [facility] ONC [id number] 01/09/2015 14:35:00 2014 23:59:59 CLS Outpatient MORRO BURT MD [facility] LAB CHF,COPD,HLP,HTN [id number] 12/10/2014 14:59:00 2014 23:59:59 CLS Outpatient SHAN MORAN S SHAVING MACHINE OPERATOR [facility] RAD [id number] 09/26/2014 14:49:00 2014 00:01:00 DIS Outpatient GASTON LOCKHART [facility] ONC [id number] 10/05/2014 09:53:00 2014 14:25:00 DIS Outpatient NY MEYERS DO [facility] SDC HEMOPTYSIS [id number] 10/02/2014 11:53:00 2014 23:59:59 CLS Outpatient SHAN MORAN S SHAVING MACHINE OPERATOR [facility] RAD ABNORMAL CT [id number] 10/02/2014 11:47:00 2014 23:59:59 CLS Outpatient MORRO BURT MD [facility] CARD CHF COPD HTN HLE [id number] 09/21/2014 11:59:00 2014 23:59:59 CLS Outpatient SHAN MORAN S SHAVING MACHINE OPERATOR [facility] CARD LUNG CANCER [id number] 09/17/2014 12:51:00 2014 23:59:59 CLS Outpatient SHAN MORAN S SHAVING MACHINE OPERATOR [facility] ONC [id number] 09/10/2014 15:36:00 2014 23:59:59 CLS Outpatient GASTON LOCKHART [facility] RAD [id number] 09/04/2014 13:42:00 2014 23:59:59 CLS Outpatient MORRO BURT MD [facility] CARD CHF COPD HTN HLE [id number] 08/30/2014 13:17:00 2014 23:59:59 CLS Outpatient MORRO BURT MD [facility] LAB CHF;COPD;HRN;HYPERLIPIDEMIA [id number] 08/02/2014 21:10:00 2014 06:30:00 DIS Outpatient NY MEYERS DO [facility] SLEEP OBSERVED APNEAS ARRHYTHMIAS HTN EXCESSIVE DAYTIME [id number] 06/18/2014 12:58:00 2014 00:01:00 DIS Outpatient GASTON LOCKHART [facility] ONC [id number] 06/11/2014 13:00:00 2014 23:59:59 CLS Outpatient GASTON LOCKHART [facility] RAD LUNG CA [id number] 06/08/2014 15:03:00 2014 23:59:59 CLS Outpatient NY MEYERS DO [facility] RT COPD,LUNG CA, [id number] 01/08/2014 08:58:00 2013 23:59:59 CLS Outpatient LOCO GARZA DO [facility] CARD PALPITATIONS,TACHYCARDIA UNSP [id number] 12/28/2013 14:02:00 2013 23:59:59 CLS Outpatient SHAN MORAN SHAVING MACHINE OPERATOR [facility] ONC [id number] 12/26/2013 13:34:00 2013 00:01:00 DIS Outpatient GASTON LOCKHART [facility] ONC [id number] 12/26/2013 14:14:00 2013 23:59:59 CLS Outpatient GASTON LOCKHART [facility] RAD NON SMALL CELL LUNG CANCER [id number] 10/30/2013 14:21:00 2013 23:59:59 CLS Outpatient NY MEYERS DO [facility] RAD LUNG CA,COPD [id number] 09/28/2013 13:55:00 2013 23:59:59 CLS Outpatient LOCO GARZA DO [facility] LAB [id number] 09/26/2013 07:22:00 2013 23:59:59 CLS Outpatient NY MEYERS DO [facility] RAD LEFT UPPER LOBE INFILTRATE [id number] 08/16/2013 06:30:00 2013 09:50:00 DIS Outpatient NY MEYERS DO [facility] SDC LUNG CANCER [id number] 08/10/2013 07:30:00 2013 23:59:59 CLS Outpatient NY MEYERS DO [facility] PREOP LUNG CANCER [id number] 08/09/2013 15:00:00 2013 23:59:59 CLS Outpatient NY MEYERS DO [facility] RAD LUNG CA, COPD [id number] 08/08/2013 14:48:00 2013 23:59:59 CLS Outpatient NY MEYERS DO [facility] LAB LUNG CA,COPD,CKD III [id number] 08/07/2013 14:02:00 2013 23:59:59 CLS Outpatient NY MEYERS DO [facility] RAD COPD,LUNG CA,CHF [id number] 05/31/2013 08:49:00 2013 00:01:00 DIS Outpatient GASTON LOCKHART [facility] ONC [id number] 06/09/2013 12:54:00 2013 23:59:59 CLS Outpatient GASTON LOCKHART [facility] RT COPD,LUNG CA [id number] 05/26/2013 10:21:00 2013 23:59:59 CLS Outpatient SHAN MORANP [facility] RAD LUNG CA [id number] 05/01/2013 14:30:00 2013 23:59:59 CLS Outpatient SHAN MORANP [facility] ONC [id number] 03/28/2013 11:01:00 2013 23:59:59 CLS Outpatient SHAN MORAN SHAVING MACHINE OPERATOR [facility] RAD LUNG CA [id number] 03/13/2013 10:44:00 2013 00:01:00 DIS Outpatient GASTON LOCKHART Chas [facility] ONC [id number] 03/13/2013 10:34:00 2013 23:59:59 CLS Outpatient SHAN MORAN S SHAVING MACHINE OPERATOR [facility] ONC [id number] 02/09/2013 10:45:00 2013 23:59:59 CLS Outpatient RICHYGASTON Chas [facility] RAD LUNG CA [id number] 12/12/2012 09:00:00 2012 23:59:59 CLS Outpatient SHAN MORAN SHAVING MACHINE OPERATOR [facility] ONC [id number] 12/01/2012 09:55:00 2012 23:59:59 CLS Outpatient SHAN MORAN S SHAVING MACHINE OPERATOR [facility] RAD LUNG CA, HEADACHE, DIZZY [id number] 11/30/2012 09:31:00 2012 23:59:59 CLS Outpatient SHAN MORAN SHAVING MACHINE OPERATOR [facility] ONC [id number] 11/07/2012 12:52:00 2012 00:01:00 DIS Outpatient GASTON LOCKHART Chas [facility] ONC [id number] 11/11/2012 16:11:00 2012 18:10:00 DIS Inpatient RICHY GASTON Doherty [facility] 4TH SWB; SEVERE MUCUSITIS,NON SMALL CELL LUNG CANCER [id number] 11/07/2012 17:12:00 2012 16:11:00 DIS Inpatient GASTON LOCKHART Chas [facility] 4TH SEVERE MUCUSITIS,NON SMALL CELL LUNG CANCER [id number] 11/07/2012 12:56:00 2012 23:59:59 CLS Outpatient SHAN MORAN S SHAVING MACHINE OPERATOR [facility] ONC [id number] 11/01/2012 09:02:00 2012 23:59:59 CLS Outpatient MORAN, HILAH S SHAVING MACHINE OPERATOR [facility] ONC [id number] 09/13/2012 12:58:00 2012 23:59:59 CLS Outpatient SHAN MORAN SHAVING MACHINE OPERATOR [facility] ONC [id number] 06/16/2012 11:28:00 2012 23:59:59 CLS Outpatient BRENDA HASTINGS MD [facility] RAD ABN CHEST XRAY [id number] 06/15/2012 15:19:00 2012 23:59:59 CLS Outpatient BRENDA HASTINGS MD [facility] RAD HEMPOTYSIS [id number] 04/23/2016 11:31:00 ACT Outpatient ROLA IRBY [facility] LAB E78.5,E78.0 [id number] 02/24/2016 13:00:00 PEN Preadmit NY MEYERS DO [facility] PULM COPD [id number] 02/14/2016 00:10:00 PEN Preadmit GASTON LOCKHART [facility] ONC [id number] 02/13/2016 14:17:00 ACT Outpatient LOCO GARZA DO [facility] LAB [id number] 10/22/2015 09:27:00 ACT Outpatient SHAN MORAN SHAVING MACHINE OPERATOR [facility] RAD MALIGNANT NEOPLASM OF UPPER LOBE,LT BRONCHUS [id number] 10/11/2015 12:55:00 ACT Outpatient GASTON LOCKHART [facility] RAD LUNG CANCER [id number] 10/11/2015 12:41:00 ACT Outpatient MORRO BURT MD [facility] LAB [id number] 07/26/2015 15:11:00 ACT Outpatient PAUL BALDWIN DC [facility] RAD NECK PAIN [id number] 07/11/2015 12:02:00 ACT Outpatient ROLA IRBY [facility] LAB HYPERLIPIDEMIA MIXED [id number] 04/12/2015 09:47:00 ACT Outpatient MORRO BURT MD [facility] LAB HYPERLIPIDEMIA [id number] 04/02/2015 15:00:00 ACT Outpatient SHAN MORAN [facility] ONC [id number] 03/05/2015 10:01:00 ACT Outpatient SHAN MORAN [facility] RAD [id number] 03/05/2015 09:53:00 ACT Outpatient GASTON LOCKHART [facility] ONC [id number] 04/09/2014 09:00:00 Document Registration [id number] 06/02/2011 14:01:00 Document Registration [id number] 11/07/2010 05:33:00 Document Registration [id number] 11/05/2010 07:15:00 Document Registration [id number] 09/10/2010 10:25:00 Document Registration [id number] 04/29/2010 07:45:00 Document Registration
[2016-04-23 12:04] LABS: ALANINE AMINOTRANSFERASE 13 U/L (0-55); ANION GAP 9 MMOL/L (5-14); ASPARTATE AMINO TRANSFERASE 12 U/L (5-34); BILIRUBIN,TOTAL 0.6 MG/DL (0.1-1.0); BLOOD UREA NITROGEN 11 MG/DL (7-18); BUN/CREATININE RATIO 11; CALCIUM 9.2 MG/DL (8.5-10.1); CARBON DIOXIDE 27 MMOL/L (21-32); CHLORIDE 107 MMOL/L (98-107); CHOLESTEROL 154 MG/DL (< 200); CREATININE SERUM 1.01 MG/DL (0.60-1.30); DIRECT LDL 114 MG/DL (1-129); GFR ESTIMATED > 60; GLUCOSE 123 MG/DL (70-105); POTASSIUM 4.1 MMOL/L (3.6-5.0); SODIUM 143 MMOL/L (135-145); TOTAL PROTEIN 6.8 G/DL (6.4-8.2); TRIGLYCERIDES 125 MG/DL (<150); VLDL CHOLESTEROL 25 MG/DL (5-40)
== END ==
LOC: LAB 11:31
PROVIDERS: ATTEND Physician Assistant
DX: E78.5 Hyperlipidemia, unspecified (principal); I50.22 Chronic systolic (congestive) heart failure; I49.3 Ventricular premature depolarization; E78.00 Pure hypercholesterolemia, unspecified
CPT/HCPCS: 36415; 80053; 80061

== ENCOUNTER → 2016-06-10 | Outpatient (CLI) | payer MEDICARE, OTHER ==
[~2016-06-10] MED LIST changes: +RT-ALBUTEROL SULF 2.5 MG/3 ML PRE-MIX VIAL IH ONE
== END ==
LOC: RT 14:25
PROVIDERS: ATTEND Nurse Practitioner Family
DX: J44.9 Chronic obstructive pulmonary disease, unspecified (principal)
CPT/HCPCS: 94060; 94640; 94726; 94729

== ENCOUNTER → 2016-06-26 | Outpatient (CLI) | payer MEDICARE, OTHER ==
[~2016-06-26] MED LIST changes: -RT-ALBUTEROL SULF 2.5 MG/3 ML PRE-MIX VIAL IH ONE
--- NOTE | 2016-06-29 09:37 | ECHOCARDIOGRAPHY REPORT ---
DATE OF SERVICE: 06/26/2016 REFERRING PHYSICIAN: Dr. Ibarra. MEASUREMENT: LVID end diastolic 5.2, IVS thickness 1.0, LVPW thickness 1.0, left atrial diameter 3.4, ejection fraction 60%. FINDINGS: 1. Technical quality is good. 2. The left ventricle is normal in size with normal contractility, systolic function appeared to be normal, estimated ejection fraction 60%. 3. The left atrium is normal in size. No clot or thrombus were seen within the left atrium. 4. The right atrium and right ventricle are normal in size. No clot or thrombus were seen within the right side. 5. Mitral valve is normal in morphology with mild mitral regurgitation noted by color Doppler flow. No mitral valve prolapse. No mitral valve stenosis. 6. Aortic valve is calcified, still opening and closing normally. There is no significant aortic valve stenosis or regurgitation seen. 7. Tricuspid valve is normal in morphology with mild tricuspid regurgitation noted by color Doppler flow. Doppler across the tricuspid valve estimated pulmonary artery pressure of 9+ right atrial pressure. 8. Pulmonic valve is functioning normally. 9. No pericardial effusion. CONCLUSION: 1. Normal left ventricular size and systolic function. Estimated ejection fraction 60%. 2. Mild aortic valve sclerosis, no aortic stenosis. 3. Mild mitral and tricuspid regurgitation. 4. Estimated pulmonary artery pressure of 15 mmHg. Job ID: [id number] DocumentID: [id number] Dictated Date: 06/29/2016 08:03:19 Pay Clerk Date: 06/29/2016 08:43:41 Dictated By: MORRO BURT MD
== END ==
LOC: CARD 09:51
PROVIDERS: ATTEND Physician Assistant
DX: I48.0 Paroxysmal atrial fibrillation (principal); E78.2 Mixed hyperlipidemia; I10 Essential (primary) hypertension; I49.3 Ventricular premature depolarization; I08.3 Combined rheumatic disorders of mitral, aortic and tricuspid valves
CPT/HCPCS: 93306

== ENCOUNTER → 2016-07-09 | Outpatient (CLI) | payer MEDICARE, OTHER ==
[~2016-07-09] MED LIST changes: +BARIUM SUSPENSION 2.1% (VANILLA SILQ) 450 ML PO ONE; +CATHETER FLUSH 10 ML SYR IV PRN; +IOHEXOL 350 MG/ML 100 ML (OMNIPAQUE 350) VIAL IV ONE; +NS 100 ML (IVPB) BAG IV ONE
--- NOTE | 2016-07-09 13:47 | Diagnostic Imaging Report ---
PROCEDURE: CT chest and abdomen with contrast. TECHNIQUE: Multiple contiguous axial images were obtained through the chest and abdomen after the administration of intravenous contrast. INDICATION: Pancreatic lesion and history of lung cancer. COMPARISON: Study is compared with exam dated 10/11/2015. FINDINGS: CHEST: Posterior oriented linear scarring in the left upper lobe extends posteriorly to the top of the superior segment of the left lower lobe. This is an unchanged finding. There is air trapping and features of COPD, chronic. Area of somewhat conical configured scarring in the caudal aspect of the right middle lobe is unchanged. A tiny nodule in the right lower lobe just posterior to the right hepatic dome measures 11 mm, unchanged. 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 No new, dominant or suspicious lung nodule, and there is no hilar or mediastinal lymphadenopathy. There is no pneumothorax. Tiny amount of left pleural fluid in the upper chest posteromedially is unchanged. There is no acute osseous abnormality. ABDOMEN: Hypodense solid soft tissue mass within the uncinate process of the pancreas measures about 3.8 cm AP x 3.8 cm transverse. The intraparenchymal pancreatic lesion itself showed no substantial progression; however, its caudal extent at the midline shows much greater infiltration and involvement of the mesenteric root with resultant encasement of the distal SMA as well as its proximal branches. The superior mesenteric vein becomes lost in this infiltrative process, and its patency could not be confirmed. The extra- and intra-hepatic portal venous branches are confirmed patent. The contiguous mesenteric component itself is inseparable from the ventral aspect of the transverse duodenum, and the tumor bulk at this level measures roughly 3.9 x 4.4 cm. There is no intraparenchymal liver mass, and there is no biliary ductal dilatation. Stomach is borderline distended with ingested contrast media. Spleen is negative. There is no adrenal mass. There is no ascites. There is a right renal cortical cyst in the lower pole, simple and benign. No destructive osseous lesion. No fluid collection or ascites. IMPRESSION: CHEST: Stable chest. Areas of presumed scarring and COPD unchanged. No adenopathy or new nodule. No acute pathology. Tiny left effusion stable. ABDOMEN: Mass epicentered at the pancreatic uncinate process is redemonstrated. The primary lesion itself is contiguous with mesenteric infiltration along its root encasing superior mesenteric arterial branches and obscuring from visualization the SMV at that level. Mesenteric extension of tumor has progressed from the prior. There is no ascites. There is no biliary dilatation. Borderline distention of the stomach, but no findings of cristiano outlet obstruction. Negative liver. Dictated by: Dictated on workstation # [id number]
== END ==
LOC: RAD 11:16
PROVIDERS: ATTEND Nurse Practitioner Adult Health
DX: C34.12 Malignant neoplasm of upper lobe, left bronchus or lung (principal); K86.9 Disease of pancreas, unspecified
CPT/HCPCS: 71260; 74160

== ENCOUNTER → 2016-08-26 | Outpatient (CLI) | payer MEDICARE, OTHER ==
[~2016-08-26] MED LIST changes: -BARIUM SUSPENSION 2.1% (VANILLA SILQ) 450 ML PO ONE; -CATHETER FLUSH 10 ML SYR IV PRN; -IOHEXOL 350 MG/ML 100 ML (OMNIPAQUE 350) VIAL IV ONE; -NS 100 ML (IVPB) BAG IV ONE
== END ==
LOC: CARD 14:00
PROVIDERS: ATTEND Internal Medicine
DX: R00.2 Palpitations (principal)
CPT/HCPCS: 93225; 93226

== ENCOUNTER 2016-09-03 13:52 | Outpatient (RCR) | payer MEDICARE, OTHER ==
[2016-07-08 14:59] LABS: BASOPHILS # (AUTO) 0.1 10^3/uL (0.0-0.1); BASOPHILS % (AUTO) 1 % (0-10); EOSINOPHILS # (AUTO) 0.1 10^3/uL (0.0-0.3); EOSINOPHILS % (AUTO) 2 % (0-10); LYMPHOCYTES # (AUTO) 1.6 X 10^3 (1.0-4.0); LYMPHOCYTES % (AUTO) 20 % (12-44); MEAN CORPUSCULAR HEMOGLOBIN 27 PG (25-34); MEAN CORPUSCULAR HGB CONC 32 G/DL (32-36); MEAN CORPUSCULAR VOLUME 84 FL (80-99); MEAN PLATELET VOLUME 11.7 FL (7.4-10.4); MONOCYTES # (AUTO) 0.5 X 10^3 (0.0-1.0); MONOCYTES % (AUTO) 6 % (0-12); NEUTROPHILS # (AUTO) 5.9 X 10^3 (1.8-7.8); NEUTROPHILS % (AUTO) 72 % (42-75); PLATELET COUNT 216 10^3/uL (130-400); RED BLOOD COUNT 5.58 10^6/uL (4.35-5.85); RED CELL DISTRIBUTION WIDTH 14.9 % (10.0-14.5); WHITE BLOOD COUNT 8.3 10^3/uL (4.3-11.0)
[2016-07-08 15:32] LABS: ALANINE AMINOTRANSFERASE 13 U/L (0-55); ANION GAP 10 MMOL/L (5-14); ASPARTATE AMINO TRANSFERASE 14 U/L (5-34); BILIRUBIN,TOTAL 0.6 MG/DL (0.1-1.0); BLOOD UREA NITROGEN 12 MG/DL (7-18); BUN/CREATININE RATIO 12; CALCIUM 9.1 MG/DL (8.5-10.1); CARBON DIOXIDE 26 MMOL/L (21-32); CHLORIDE 105 MMOL/L (98-107); CREATININE SERUM 0.97 MG/DL (0.60-1.30); GFR ESTIMATED > 60; GLUCOSE 148 MG/DL (70-105); MAGNESIUM 1.8 MG/DL (1.8-2.4); POTASSIUM 4.8 MMOL/L (3.6-5.0); SODIUM 141 MMOL/L (135-145); TOTAL PROTEIN 6.7 G/DL (6.4-8.2)
[2016-08-13 13:56] LABS: BASOPHILS # (AUTO) 0.1 10^3/uL (0.0-0.1); BASOPHILS % (AUTO) 1 % (0-10); EOSINOPHILS # (AUTO) 0.1 10^3/uL (0.0-0.3); EOSINOPHILS % (AUTO) 2 % (0-10); LYMPHOCYTES # (AUTO) 0.8 X 10^3 (1.0-4.0); LYMPHOCYTES % (AUTO) 24 % (12-44); MEAN CORPUSCULAR HEMOGLOBIN 28 PG (25-34); MEAN CORPUSCULAR HGB CONC 33 G/DL (32-36); MEAN CORPUSCULAR VOLUME 84 FL (80-99); MEAN PLATELET VOLUME 12.4 FL (7.4-10.4); MONOCYTES # (AUTO) 0.4 X 10^3 (0.0-1.0); MONOCYTES % (AUTO) 11 % (0-12); NEUTROPHILS # (AUTO) 2.2 X 10^3 (1.8-7.8); NEUTROPHILS % (AUTO) 63 % (42-75); PLATELET COUNT 241 10^3/uL (130-400); RED BLOOD COUNT 5.54 10^6/uL (4.35-5.85); RED CELL DISTRIBUTION WIDTH 14.5 % (10.0-14.5); WHITE BLOOD COUNT 3.6 10^3/uL (4.3-11.0)
[2016-08-13 14:20] LABS: ANION GAP 11 MMOL/L (5-14); BLOOD UREA NITROGEN 9 MG/DL (7-18); BUN/CREATININE RATIO 10; CALCIUM 8.9 MG/DL (8.5-10.1); CARBON DIOXIDE 22 MMOL/L (21-32); CHLORIDE 109 MMOL/L (98-107); CREATININE SERUM 0.92 MG/DL (0.60-1.30); GFR ESTIMATED > 60; GLUCOSE 160 MG/DL (70-105); POTASSIUM 4.2 MMOL/L (3.6-5.0); SODIUM 142 MMOL/L (135-145)
[2016-08-20 13:47] LABS: BASOPHILS % (AUTO) 1 % (0-10); EOSINOPHILS % (AUTO) 1 % (0-10); LYMPHOCYTES # (AUTO) 0.9 X 10^3 (1.0-4.0); LYMPHOCYTES % (AUTO) 25 % (12-44); MEAN CORPUSCULAR HEMOGLOBIN 28 PG (25-34); MEAN CORPUSCULAR HGB CONC 33 G/DL (32-36); MEAN CORPUSCULAR VOLUME 85 FL (80-99); MEAN PLATELET VOLUME 10.8 FL (7.4-10.4); MONOCYTES # (AUTO) 0.3 X 10^3 (0.0-1.0); MONOCYTES % (AUTO) 8 % (0-12); NEUTROPHILS # (AUTO) 2.3 X 10^3 (1.8-7.8); NEUTROPHILS % (AUTO) 65 % (42-75); PLATELET COUNT 131 10^3/uL (130-400); RED BLOOD COUNT 5.08 10^6/uL (4.35-5.85); RED CELL DISTRIBUTION WIDTH 14.9 % (10.0-14.5); WHITE BLOOD COUNT 3.5 10^3/uL (4.3-11.0)
[2016-08-20 14:39] LABS: ANION GAP 10 MMOL/L (5-14); BLOOD UREA NITROGEN 8 MG/DL (7-18); BUN/CREATININE RATIO 8; CALCIUM 9.2 MG/DL (8.5-10.1); CARBON DIOXIDE 25 MMOL/L (21-32); CHLORIDE 107 MMOL/L (98-107); CREATININE SERUM 1.01 MG/DL (0.60-1.30); GFR ESTIMATED > 60; GLUCOSE 147 MG/DL (70-105); POTASSIUM 3.9 MMOL/L (3.6-5.0); SODIUM 142 MMOL/L (135-145)
[2016-08-27 15:08] LABS: BASOPHILS # (AUTO) 0.1 10^3/uL (0.0-0.1); BASOPHILS % (AUTO) 1 % (0-10); EOSINOPHILS # (AUTO) 0.1 10^3/uL (0.0-0.3); EOSINOPHILS % (AUTO) 2 % (0-10); LYMPHOCYTES # (AUTO) 1.1 X 10^3 (1.0-4.0); LYMPHOCYTES % (AUTO) 22 % (12-44); MEAN CORPUSCULAR HEMOGLOBIN 27 PG (25-34); MEAN CORPUSCULAR HGB CONC 32 G/DL (32-36); MEAN CORPUSCULAR VOLUME 87 FL (80-99); MEAN PLATELET VOLUME 11.1 FL (7.4-10.4); MONOCYTES # (AUTO) 0.6 X 10^3 (0.0-1.0); MONOCYTES % (AUTO) 12 % (0-12); NEUTROPHILS # (AUTO) 3.3 X 10^3 (1.8-7.8); NEUTROPHILS % (AUTO) 63 % (42-75); PLATELET COUNT 275 10^3/uL (130-400); RED BLOOD COUNT 5.02 10^6/uL (4.35-5.85); RED CELL DISTRIBUTION WIDTH 16.6 % (10.0-14.5); WHITE BLOOD COUNT 5.2 10^3/uL (4.3-11.0)
[2016-08-27 15:41] LABS: ANION GAP 10 MMOL/L (5-14); BLOOD UREA NITROGEN 8 MG/DL (7-18); BUN/CREATININE RATIO 8; CARBON DIOXIDE 25 MMOL/L (21-32); CHLORIDE 108 MMOL/L (98-107); CREATININE SERUM 1.01 MG/DL (0.60-1.30); GFR ESTIMATED > 60; GLUCOSE 127 MG/DL (70-105); POTASSIUM 4.9 MMOL/L (3.6-5.0); SODIUM 143 MMOL/L (135-145)
[~2016-09-03 13:52] MED LIST changes: +GEMCITABINE HCL (GENERIC) 1,000 MG, GEMCITABINE HCL (GENERIC) 600 MG in NS (IVPB) CANCE... IV SCH; +NS IV 1000 ML (CANCER CTR) IV SCH; +PACLitaxel PROTEIN 180 MG in EMPTY IV BAG (PVC) CANCER CTR 1 EA IV SCH; +PALONOSETRON 0.25 MG, DEXAMETHASONE 10 MG/NS 50 ML IVPB IV PRN
[2016-09-03 14:09] LABS: BASOPHILS # (AUTO) 0.1 10^3/uL (0.0-0.1); BASOPHILS % (AUTO) 1 % (0-10); EOSINOPHILS # (AUTO) 0.1 10^3/uL (0.0-0.3); EOSINOPHILS % (AUTO) 2 % (0-10); LYMPHOCYTES # (AUTO) 1.1 X 10^3 (1.0-4.0); LYMPHOCYTES % (AUTO) 20 % (12-44); MEAN CORPUSCULAR HEMOGLOBIN 28 PG (25-34); MEAN CORPUSCULAR HGB CONC 32 G/DL (32-36); MEAN CORPUSCULAR VOLUME 87 FL (80-99); MEAN PLATELET VOLUME 10.8 FL (7.4-10.4); MONOCYTES # (AUTO) 0.6 X 10^3 (0.0-1.0); MONOCYTES % (AUTO) 11 % (0-12); NEUTROPHILS # (AUTO) 3.6 X 10^3 (1.8-7.8); NEUTROPHILS % (AUTO) 66 % (42-75); PLATELET COUNT 341 10^3/uL (130-400); RED BLOOD COUNT 5.08 10^6/uL (4.35-5.85); RED CELL DISTRIBUTION WIDTH 16.5 % (10.0-14.5); WHITE BLOOD COUNT 5.5 10^3/uL (4.3-11.0)
[2016-09-03 14:32] LABS: ALANINE AMINOTRANSFERASE 12 U/L (0-55); ALBUMIN 3.6 GM/DL (3.2-4.5); ANION GAP 11 MMOL/L (5-14); ASPARTATE AMINO TRANSFERASE 12 U/L (5-34); BILIRUBIN,TOTAL 0.4 MG/DL (0.1-1.0); BLOOD UREA NITROGEN 7 MG/DL (7-18); BUN/CREATININE RATIO 7; CALCIUM 9.1 MG/DL (8.5-10.1); CARBON DIOXIDE 25 MMOL/L (21-32); CHLORIDE 107 MMOL/L (98-107); CREATININE SERUM 0.96 MG/DL (0.60-1.30); GFR ESTIMATED > 60; GLUCOSE 122 MG/DL (70-105); POTASSIUM 4.9 MMOL/L (3.6-5.0); SODIUM 143 MMOL/L (135-145); TOTAL PROTEIN 6.4 GM/DL (6.4-8.2)
[2016-09-17] MEDS ORDERED: ONDANSETRON 16 MG, DEXAMETHASONE 10 MG/NS 50 ML IVPB IV SCH ×3 (08:30)
== END 2016-10-06 | disposition home or self-care (01) ==
LOC: ONC 13:52
PROVIDERS: ATTEND Internal Medicine Hematology & Oncology
DX: Z51.11 Encounter for antineoplastic chemotherapy (principal); C34.12 Malignant neoplasm of upper lobe, left bronchus or lung; R31.9 Hematuria, unspecified; J44.9 Chronic obstructive pulmonary disease, unspecified; F17.210 Nicotine dependence, cigarettes, uncomplicated; R82.99 Other abnormal findings in urine; Z92.21 Personal history of antineoplastic chemotherapy; Z92.3 Personal history of irradiation
CPT/HCPCS: 36415; 80048; 80053; 83735; 84153; 85025; 86301; 87324; 87449; 96375; 96413; 96417; 99213

== ENCOUNTER → 2016-10-14 | Outpatient (CLI) | payer MEDICARE, OTHER ==
[~2016-10-14] MED LIST changes: -GEMCITABINE HCL (GENERIC) 1,000 MG, GEMCITABINE HCL (GENERIC) 600 MG in NS (IVPB) CANCE... IV SCH; -NS IV 1000 ML (CANCER CTR) IV SCH; -PACLitaxel PROTEIN 180 MG in EMPTY IV BAG (PVC) CANCER CTR 1 EA IV SCH; -PALONOSETRON 0.25 MG, DEXAMETHASONE 10 MG/NS 50 ML IVPB IV PRN
[2016-10-14 10:29] LABS: ALANINE AMINOTRANSFERASE 14 U/L (0-55); ALBUMIN 3.6 GM/DL (3.2-4.5); ANION GAP 10 MMOL/L (5-14); ASPARTATE AMINO TRANSFERASE 15 U/L (5-34); BILIRUBIN,TOTAL 0.5 MG/DL (0.1-1.0); BLOOD UREA NITROGEN 6 MG/DL (7-18); BUN/CREATININE RATIO 6; CARBON DIOXIDE 22 MMOL/L (21-32); CHLORIDE 109 MMOL/L (98-107); CREATININE SERUM 0.97 MG/DL (0.60-1.30); GFR ESTIMATED > 60; GLUCOSE 102 MG/DL (70-105); POTASSIUM 3.8 MMOL/L (3.6-5.0); SODIUM 141 MMOL/L (135-145); TOTAL PROTEIN 6.1 GM/DL (6.4-8.2)
== END ==
LOC: LAB 09:44
PROVIDERS: ATTEND Internal Medicine Cardiovascular Disease
DX: I48.0 Paroxysmal atrial fibrillation (principal); R06.00 Dyspnea, unspecified; C34.12 Malignant neoplasm of upper lobe, left bronchus or lung
CPT/HCPCS: 36415; 80053

== ENCOUNTER → 2016-10-16 | Outpatient (CLI) | payer MEDICARE, OTHER ==
[~2016-10-16] MED LIST changes: +GEMCITABINE HCL (GENERIC) 1,000 MG, GEMCITABINE HCL (GENERIC) 600 MG in NS (IVPB) CANCE... IV SCH; +NS IV 1000 ML (CANCER CTR) IV SCH; +ONDANSETRON 16 MG, DEXAMETHASONE 10 MG/NS 50 ML IVPB IV SCH
== END ==
LOC: CARD 12:38
PROVIDERS: ATTEND Internal Medicine Cardiovascular Disease
DX: I48.0 Paroxysmal atrial fibrillation (principal); C34.12 Malignant neoplasm of upper lobe, left bronchus or lung; R06.00 Dyspnea, unspecified
CPT/HCPCS: 93306

== ENCOUNTER 2016-11-03 13:07 | Outpatient (RCR) | payer MEDICARE, OTHER ==
[~2016-11-03 13:07] MED LIST changes: -GEMCITABINE HCL (GENERIC) 1,000 MG, GEMCITABINE HCL (GENERIC) 600 MG in NS (IVPB) CANCE... IV SCH; -NS IV 1000 ML (CANCER CTR) IV SCH; -ONDANSETRON 16 MG, DEXAMETHASONE 10 MG/NS 50 ML IVPB IV SCH
[2016-11-03 13:13] LABS: BASOPHILS % (AUTO) 0 % (0-10); EOSINOPHILS # (AUTO) 0.1 10^3/uL (0.0-0.3); EOSINOPHILS % (AUTO) 1 % (0-10); LYMPHOCYTES # (AUTO) 1.6 X 10^3 (1.0-4.0); LYMPHOCYTES % (AUTO) 18 % (12-44); MEAN CORPUSCULAR HEMOGLOBIN 29 PG (25-34); MEAN CORPUSCULAR HGB CONC 33 G/DL (32-36); MEAN CORPUSCULAR VOLUME 87 FL (80-99); MONOCYTES # (AUTO) 0.6 X 10^3 (0.0-1.0); MONOCYTES % (AUTO) 7 % (0-12); NEUTROPHILS # (AUTO) 6.3 X 10^3 (1.8-7.8); NEUTROPHILS % (AUTO) 73 % (42-75); PLATELET COUNT 239 10^3/uL (130-400); RED CELL DISTRIBUTION WIDTH 15.5 % (10.0-14.5); WHITE BLOOD COUNT 8.6 10^3/uL (4.3-11.0)
[2016-11-03 13:35] LABS: ALANINE AMINOTRANSFERASE 13 U/L (0-55); ALBUMIN 3.7 GM/DL (3.2-4.5); ANION GAP 9 MMOL/L (5-14); ASPARTATE AMINO TRANSFERASE 13 U/L (5-34); BILIRUBIN,TOTAL 0.5 MG/DL (0.1-1.0); BLOOD UREA NITROGEN 6 MG/DL (7-18); BUN/CREATININE RATIO 7; CALCIUM 8.9 MG/DL (8.5-10.1); CARBON DIOXIDE 22 MMOL/L (21-32); CHLORIDE 107 MMOL/L (98-107); GFR ESTIMATED > 60; GLUCOSE 145 MG/DL (70-105); MAGNESIUM 1.7 MG/DL (1.8-2.4); SODIUM 138 MMOL/L (135-145); TOTAL PROTEIN 6.4 GM/DL (6.4-8.2)
== END 2016-11-07 | disposition home or self-care (01) ==
LOC: ONC 13:07
PROVIDERS: ATTEND Internal Medicine Hematology & Oncology
DX: R31.9 Hematuria, unspecified; C25.1 Malignant neoplasm of body of pancreas; Z92.21 Personal history of antineoplastic chemotherapy; Z79.899 Other long term (current) drug therapy; R19.7 Diarrhea, unspecified; R82.99 Other abnormal findings in urine; F17.210 Nicotine dependence, cigarettes, uncomplicated; I48.0 Paroxysmal atrial fibrillation; Z79.01 Long term (current) use of anticoagulants; Z92.3 Personal history of irradiation; Z85.118 Personal history of other malignant neoplasm of bronchus and lung; J44.9 Chronic obstructive pulmonary disease, unspecified; Z66 Do not resuscitate
CPT/HCPCS: 80053; 83735; 85025; 86301; 99213

== ENCOUNTER 2016-12-21 13:21 | Outpatient (RCR) | payer MEDICARE, OTHER ==
[2016-12-21 13:54] LABS: BASOPHILS # (AUTO) 0.1 10^3/uL (0.0-0.1); BASOPHILS % (AUTO) 1 % (0-10); EOSINOPHILS # (AUTO) 0.1 10^3/uL (0.0-0.3); EOSINOPHILS % (AUTO) 1 % (0-10); HEMATOCRIT 46 % (40-54); HEMOGLOBIN 15.1 G/DL (13.3-17.7); LYMPHOCYTES % (AUTO) 16 % (12-44); MEAN CORPUSCULAR HEMOGLOBIN 29 PG (25-34); MEAN CORPUSCULAR HGB CONC 33 G/DL (32-36); MEAN CORPUSCULAR VOLUME 87 FL (80-99); MONOCYTES # (AUTO) 0.6 X 10^3 (0.0-1.0); MONOCYTES % (AUTO) 10 % (0-12); NEUTROPHILS # (AUTO) 4.2 X 10^3 (1.8-7.8); NEUTROPHILS % (AUTO) 71 % (42-75); PLATELET COUNT 190 10^3/uL (130-400); RED BLOOD COUNT 5.24 10^6/uL (4.35-5.85); RED CELL DISTRIBUTION WIDTH 14.9 % (10.0-14.5); WHITE BLOOD COUNT 5.8 10^3/uL (4.3-11.0)
[2016-12-21 14:11] LABS: ALANINE AMINOTRANSFERASE 433 U/L (0-55); ALBUMIN 3.6 GM/DL (3.2-4.5); ALKALINE PHOSPHATASE 401 U/L (40-136); BILIRUBIN,TOTAL 3.2 MG/DL (0.1-1.0); BUN/CREATININE RATIO 8; CALCIUM 9.2 MG/DL (8.5-10.1); CARBON DIOXIDE 21 MMOL/L (21-32); CHLORIDE 106 MMOL/L (98-107); CREATININE SERUM 0.79 MG/DL (0.60-1.30); GFR ESTIMATED > 60; GLUCOSE 150 MG/DL (70-105); POTASSIUM 4.1 MMOL/L (3.6-5.0); SODIUM 136 MMOL/L (135-145); TOTAL PROTEIN 6.2 GM/DL (6.4-8.2)
== END 2017-03-21 | disposition home or self-care (01) ==
LOC: ONC 13:21
PROVIDERS: ATTEND Internal Medicine Hematology & Oncology
DX: C25.1 Malignant neoplasm of body of pancreas (principal); Z85.118 Personal history of other malignant neoplasm of bronchus and lung; R31.9 Hematuria, unspecified; J44.9 Chronic obstructive pulmonary disease, unspecified; I48.0 Paroxysmal atrial fibrillation; R19.7 Diarrhea, unspecified; F17.210 Nicotine dependence, cigarettes, uncomplicated; R82.99 Other abnormal findings in urine; Z66 Do not resuscitate; Z92.21 Personal history of antineoplastic chemotherapy; Z92.3 Personal history of irradiation; Z79.01 Long term (current) use of anticoagulants; Z79.899 Other long term (current) drug therapy
CPT/HCPCS: 80053; 85025; 99213